=== PATIENT | male | born 1965 | race Caucasian/White ===

== ENCOUNTER 2023-02-24 10:31 | Inpatient (IN) | payer MEDICARE, OTHER ==
--- NOTE | 2023-02-24 12:34 | ED ---
Skin/Abscess/FB HPI - General Source: patient, RN notes reviewed Mode of arrival: ambulatory Limitations: no limitations <Benedict Otero - Last Filed: 02/24/23 12:33> - General Source: RN notes reviewed, old records reviewed Mode of arrival: ambulatory Limitations: no limitations - History of Present Illness MD complaint: abscess/boil, other (Cellulitis) -: days(s) Tetanus Up to Date: yes Location: LLE Severity: moderate Severity scale (1-10): 7 Quality: aching Consistency: constant Improves with: none Worsens with: none Context: recent illness Associated symptoms: chills, malaise, arthralgias Treatments Prior to Arrival: none <Mikey Gamez - Last Filed: 02/24/23 14:34> - General Chief complaint: Skin/Abscess/Foreign Body Stated complaint: left leg infection Time Seen by Provider: 02/24/23 12:33 - History of Present Illness Initial comments: 57-year-old male presents emergency Department with chief complaint of left leg possible infection. Patient states he had bilateral amputation of year ago. Patient states that over the incision site in the left he's noticed increasing redness, swelling and skin changes over the incision. Patient is concerned about infection as he has a history of MRSA. (Benedict Otero) This is a 57-year-old male DF for evaluation today. Patient Dese for evaluation of left leg pain swelling and erythema. Patient is without fever does have significant muscle disease with history of above-knee" there. She does have some drainage from the knee (Mikey Gamez) - Related Data Home Medications Medication Instructions Recorded Confirmed Albuterol Nebulized [Ventolin 2.5 mg INHALATION RT-QID PRN 02/24/23 02/24/23 Nebulized] Amiodarone [Cordarone] 100 mg PO DAILY 02/24/23 02/24/23 Apixaban [Eliquis] 5 mg PO BID 02/24/23 02/24/23 Ascorbic Acid [Vitamin C] 500 mg PO DAILY 02/24/23 02/24/23 Aspirin EC [Ecotrin Low Dose] 81 mg PO HS 02/24/23 02/24/23 Atorvastatin [Lipitor] 40 mg PO HS 02/24/23 02/24/23 Cholecalciferol [Vitamin D3 (25 12.5 mcg PO DAILY 02/24/23 02/24/23 Mcg = 1000 Iu)] Citalopram Hydrobromide 20 mg PO DAILY 02/24/23 02/24/23 [Citalopram HBr] Dulaglutide [Trulicity] 1 dose SQ DIRECTED 02/24/23 02/24/23 Ferrous Sulfate [Feosol] 325 mg PO DAILY 02/24/23 02/24/23 Folic Acid 1 mg PO DAILY 02/24/23 02/24/23 Furosemide [Lasix] 40 mg PO DAILY 02/24/23 02/24/23 Magnesium Oxide [Magnesium] 500 mg PO HS 02/24/23 02/24/23 [place]-3 Fatty Acids [[place]-3] 1,000 mg PO DAILY 02/24/23 02/24/23 Thiamine [Vitamin B-1] 100 mg PO DAILY 02/24/23 02/24/23 atenoloL [Tenormin] 50 mg PO BID 02/24/23 02/24/23 Allergies Allergy/AdvReac Type Severity Reaction Status Date / Time ceftriaxone [From Rocephin] Allergy Anaphylaxis Verified 02/24/23 14:14 fenofibrate Allergy Rash/Hives Verified 02/24/23 14:14 nickel Allergy Unknown Verified 02/24/23 14:14 sulfamethizole Allergy Unknown Verified 02/24/23 14:14 sulfamethoxazole Allergy Rash/Hives Verified 02/24/23 14:14 [From Bactrim] trimethoprim [From Bactrim] Allergy Rash/Hives Verified 02/24/23 14:14 Review of Systems ROS Other: All systems not noted in ROS Statement are negative. <Benedict Otero - Last Filed: 02/24/23 12:33> ROS Other: All systems not noted in ROS Statement are negative. <Mikey Gamez - Last Filed: 02/24/23 14:34> ROS Statement: Those systems with pertinent positive or pertinent negative responses have been documented in the HPI. Past Medical History Past Medical History: Diabetes Mellitus, Hyperlipidemia, Hypertension History of Any Multi-Drug Resistant Organisms: MRSA Past Surgical History: Back Surgery Additional Past Surgical History / Comment(s): bi-lat above the knee amputee 2021, perm Trach, back 2016 Past Psychological History: No Psychological Hx Reported Smoking Status: Never smoker Past Alcohol Use History: None Reported <Benedict Otero - Last Filed: 02/24/23 12:33> General Exam Limitations: no limitations <BrandenBenedict - Last Filed: 02/24/23 12:33> General appearance: alert, in no apparent distress, anxious Head exam: Present: atraumatic, normocephalic, normal inspection Eye exam: Present: normal appearance, PERRL, EOMI. Absent: scleral icterus, conjunctival injection, periorbital swelling ENT exam: Present: normal exam, mucous membranes moist Neck exam: Present: normal inspection. Absent: tenderness, meningismus, lymphadenopathy Respiratory exam: Present: normal lung sounds bilaterally. Absent: respiratory distress, wheezes, rales, rhonchi, stridor Cardiovascular Exam: Present: regular rate, normal rhythm, normal heart sounds. Absent: systolic murmur, diastolic murmur, rubs, gallop, clicks GI/Abdominal exam: Present: soft, normal bowel sounds. Absent: distended, tenderness, guarding, rebound, rigid Extremities exam: Present: normal inspection, full ROM, normal capillary refill. Absent: tenderness, pedal edema, joint swelling, calf tenderness Back exam: Present: normal inspection Neurological exam: Present: alert, oriented X3, CN II-XII intact Psychiatric exam: Present: normal affect, normal mood Skin exam: Present: warm, dry, intact, normal color. Absent: rash <Mikey Gamez - Last Filed: 02/24/23 14:34> - General Exam Comments Initial Comments: Visual Physical Exam Vital signs reviewed General: Well-appearing, nontoxic, no acute distress. Head: Normocephalic, atraumatic Eyes: PERRLA, EOMI ENT: Airway patent Chest: Nonlabored breathing Skin: No visual rash, normal skin tone Neuro: Alert and oriented 3 Musculoskeletal: Bilateral lower extremity amputee (Benedict Otero) Course <Mikey Gamez - Last Filed: 02/24/23 14:34> Vital Signs 02/24/23 02/24/23 10:35 13:16 Temperature 98.6 F Pulse Rate 92 86 Respiratory 18 18 Rate Blood Pressure 132/86 147/88 O2 Sat by Pulse 93 L 97 Oximetry - Reevaluation(s) Reevaluation #1: 02/24/23 14:32 Medical record is reviewed (Mikey Gamez) Reevaluation #2: 02/24/23 14:32 Patient symptoms unchanged here in the ER (Mikey Gamez) Reevaluation #3: 02/24/23 14:32 Patient informed results and questions have been answered (Mikey Gamez) Reevaluation #4: 02/24/23 13:40 Was pt. sent in by a medical professional or institution (TONIE Law, ELECTRONIC SERVICE TECHNICIAN, urgent care, hospital, or long term...) When possible be specific @ -no Did you speak to anyone other than the patient for history (EMS, parent, family, police, friend...)? What history was obtained from this source @ -no Did you review nursing and triage notes (agree or disagree)? Why? @ -agree Are old charts reviewed (outside hosp., previous admission, EMS record, old EKG, old radiological studies, urgent care reports/EKG's, long term records)? Report findings @ -yes Differential Diagnosis (chest pain, altered mental status, abdominal pain women, abdominal pain men, vaginal bleeding, weakness, fever, dyspnea, syncope, headache, dizziness, GI bleed, back pain, seizure, CVA, palpatations, mental health, musculoskeletal)? @ -prior EKG interpreted by me (3pts min.). @ -yes X-rays interpreted by me (1pt min.). @ -yes CT interpreted by me (1pt min.). @ -no U/S interpreted by me (1pt. min.). @ -no What testing was considered but not performed or refused? (CT, X-rays, U/S, lab s)? Why? @ -none What meds were considered but not given or refused? Why? @ -none Did you discuss the management of the patient with other professionals (professionals i.e. TONIE Law, ELECTRONIC SERVICE TECHNICIAN, lab, RT, psych nurse, socially responsible investment adviser, joinery patternmaker, teacher, medical corps officer, casey saw operator)? Give summary @ -no Was smoking cessation discussed for >3mins.? @ -no Was critical care preformed (if so, how long)? @ -no Were there social determinants of health that impacted care today? How? (Homelessness, low income, unemployed, alcoholism, drug addiction, transportation, low edu. Level, literacy, decrease access to med. care, usp, rehab)? @ -none Was there de-escalation of care discussed even if they declined (Discuss DNR or withdrawal of care, Hospice)? DNR status @ -no What co-morbidities impacted this encounter? (DM, HTN, Smoking, COPD, CAD, Cancer, CVA, ARF, Chemo, Hep., AIDS, mental health diagnosis, sleep apnea, morbid obesity)? @ -none Was patient admitted / discharged? Hospital course, mention meds given and route, prescriptions, significant lab abnormalities, going to OR and other pertinent info. @ - Undiagnosed new problem with uncertain prognosis? @ -no Drug Therapy requiring intensive monitoring for toxicity (Heparin, Nitro, Insulin, Cardizem)? @ -no Were any procedures done? @ -no Diagnosis/symptom? @ - Acute, or Chronic, or Acute on Chronic? @ -Acute Uncomplicated (without systemic symptoms) or Complicated (systemic symptoms)? @ -Complicated Side effects of treatment? @ -no Exacerbation, Progression, or Severe Exacerbation? @ -exacerbation Poses a threat to life or bodily function? How? (Chest pain, [place], [place], pneumonia, PE, COPD, DKA, ARF, appy, cholecystitis, CVA, Diverticulitis, Homicidal, Suicidal, threat to staff... and all critical care pts) @ -yes (Mikey Gamez) - Consultations Consultation #1: Spoke with Dr. Chino agrees to admit this patient (Mikey Gamez) Medical Decision Making <Benedict Otero - Last Filed: 02/24/23 12:33> - Lab Data Result diagrams: 02/24/23 13:55 02/24/23 12:47 - Radiology Data Radiology results: report reviewed (X-ray femur is suspicious for osteomyelitis), image reviewed <Mikey Gamez - Last Filed: 02/24/23 14:34> - Medical Decision Making I performed a quick note portion of this chart signed Benedict Otero PA-C (Benedict Otero) 57 male to the emergency room for evaluation. Patient since today for evaluation of severe left lower extremity pain. Cellulitis of the left leg. Swelling. Patient has persistent pain and swelling. Will be admitted for IV antibiotics and infectious disease evaluation (Mikey Gamez) - Lab Data Lab Results 02/24/23 02/24/23 02/24/23 Range/Units 12:47 12:47 13:55 WBC 5.0 (3.8-10.6) k/uL RBC 4.58 (4.30-5.90) m/uL Hgb 14.1 (13.0-17.5) gm/dL Hct 43.4 (39.0-53.0) % MCV 94.7 (80.0-100.0) fL MCH 30.8 (25.0-35.0) pg MCHC 32.5 (31.0-37.0) g/dL RDW 14.6 (11.5-15.5) % Plt Count 118 L (150-450) k/uL MPV 9.4 Neutrophils % 68 % Lymphocytes % 15 % Monocytes % 10 % Eosinophils % 3 % Basophils % 1 % Neutrophils # 3.4 (1.3-7.7) k/uL Lymphocytes # 0.8 L (1.0-4.8) k/uL Monocytes # 0.5 (0-1.0) k/uL Eosinophils # 0.2 (0-0.7) k/uL Basophils # 0.0 (0-0.2) k/uL Sodium 139 (137-145) mmol/L Potassium 5.8 H (3.5-5.1) mmol/L Chloride 104 (98-107) mmol/L Carbon Dioxide 27 (22-30) mmol/L Anion Gap 8 mmol/L BUN 30 H (9-20) mg/dL Creatinine 1.34 H (0.66-1.25) mg/dL Est GFR (CKD-EPI)AfAm 68 (>60 ml/min/1.73 sqM) Est GFR (CKD-EPI)NonAf 59 (>60 ml/min/1.73 sqM) Glucose 133 H (74-99) mg/dL Plasma Lactic Acid Jose Eduardo 1.4 (0.7-2.0) mmol/L Calcium 8.9 (8.4-10.2) mg/dL Total Bilirubin 0.7 (0.2-1.3) mg/dL AST 51 (17-59) U/L ALT 41 (4-49) U/L Alkaline Phosphatase 113 (38-126) U/L C-Reactive Protein 1.5 H (<1.0) mg/dL Total Protein 6.9 (6.3-8.2) g/dL Albumin 3.8 (3.5-5.0) g/dL Disposition <Benedict Otero - Last Filed: 02/24/23 12:33> Is patient prescribed a controlled substance at d/c from ED?: No Time of Disposition: 14:30 <Mikey Gamez - Last Filed: 02/24/23 14:34> Clinical Impression: Left leg cellulitis, Leg osteomyelitis, left Disposition: ADMITTED IP TO THIS HOSP Condition: Serious Referrals: Jonathon Dominguez MD [Primary Care Provider] - 1-2 days
[2023-02-24 13:20] LABS: ALT 41 U/L (4-49); African American GFR (CKD) 68 (>60 ml/min/1.73 sqM); Anion Gap 8 mmol/L; Blood Urea Nitrogen 30 mg/dL (9-20); C Reactive Protein 1.5 mg/dL (<1.0); Calcium 8.9 mg/dL (8.4-10.2); Carbon Dioxide 27 mmol/L (22-30); Chloride 104 mmol/L (98-107); Glucose 133 mg/dL (74-99); Non-African American GFR(CKD) 59 (>60 ml/min/1.73 sqM); Sodium 139 mmol/L (137-145); Total Bilirubin 0.7 mg/dL (0.2-1.3)
[2023-02-24 13:29] LABS: AST 51 U/L (17-59); Albumin 3.8 g/dL (3.5-5.0); Alkaline Phosphatase 113 U/L (38-126); Potassium 5.8 mmol/L (3.5-5.1); Total Protein 6.9 g/dL (6.3-8.2)
--- NOTE | 2023-02-24 13:50 | XR ---
EXAMINATION TYPE: XR Femur LT 1 View DATE OF EXAM: 02/24/2023 COMPARISON: NONE HISTORY: infection TECHNIQUE: 2 views of the left femur are submitted FINDINGS: There is evidence of [id number] amputation. There is soft tissue swelling. As the amput ation stump. There is mild lucency noted of the distal left femur with heterotopic ossification seen. Underlying osteomyelitis is difficult to exclude. IMPRESSION: 1. Lucency about the distal femoral amputation. Underlying osteomyelitis is not excluded. There is so ft tissue swelling compatible with cellulitis.
[2023-02-24 14:05] LABS: Basophils % (A) 1 %; Eosinophils # (A) 0.2 k/uL (0-0.7); Eosinophils % (A) 3 %; HCT 43.4 % (39.0-53.0); HGB 14.1 gm/dL (13.0-17.5); Lymphocytes # (A) 0.8 k/uL (1.0-4.8); Lymphocytes % (A) 15 %; MCH 30.8 pg (25.0-35.0); MCHC 32.5 g/dL (31.0-37.0); MCV 94.7 fL (80.0-100.0); Mean Platelet Volume 9.4; Monocytes # (A) 0.5 k/uL (0-1.0); Monocytes % (A) 10 %; Neutrophils # (A) 3.4 k/uL (1.3-7.7); Neutrophils % (A) 68 %; Platelet Count 118 k/uL (150-450); RBC 4.58 m/uL (4.30-5.90); RDW 14.6 % (11.5-15.5)
[2023-02-24] MEDS ORDERED: MORPHINE SULFATE 4 MG/ML SYRINGE IV PRN (14:26)
[2023-02-24] MEDS ORDERED: NALOXONE 0.4 MG/ML 1 ML VIAL IV PRN (14:26)
[2023-02-24] MEDS ORDERED: VANCOMYCIN IV PER PHARMACY 1 EACH MISC MISCELLANE PRN (14:26)
[2023-02-24] MEDS ORDERED: AMPICILLIN-SULBACTAM 3 GM in SODIUM CHLORIDE 0.9% 100 ML IVPB STA (14:26)
[2023-02-24] MEDS ORDERED: ONDANSETRON 4 MG/2 ML VIAL IVP PRN (14:26)
[2023-02-24] MEDS ORDERED: VANCOMYCIN 2,250 MG in SODIUM CHLORIDE 0.9% 500 ML 500 ML IVPB ONE (15:00)
[2023-02-24] MEDS: SODIUM CHLORIDE 0.9% 1,000 ML IV SCH (15:45)
[2023-02-24] MEDS ORDERED: ALBUTEROL NEBULIZED 2.5 MG/3 ML INHALATION PRN (16:23)
[2023-02-24] MEDS ORDERED: NON FORMULARY DRUG (Dulaglutide [Trulicity] 0.75 MG/0.5 ML Each) SQ SCH (16:30)
[2023-02-24] MEDS ORDERED: Acetaminophen-Codeine 300-30mg TAB PO PRN (19:22)
[2023-02-24] MEDS ORDERED: MELATONIN 3 MG TABLET PO PRN (19:22)
[2023-02-24] MEDS ORDERED: ACETAMINOPHEN TAB 325 MG TAB PO PRN (19:22)
[2023-02-24] MEDS ORDERED: CALCIUM CARBONATE 500 MG CHEWABLE PO PRN (19:22)
[2023-02-24] MEDS ORDERED: LACTULOSE 20 GM/30 ML CUP PO PRN (19:22)
[2023-02-24] MEDS ORDERED: ALPRAZolam 0.25 MG TAB PO PRN (19:22)
[2023-02-24] MEDS ORDERED: DEXTROSE 50% SYRINGE 50 ML IVP PRN ×2 (19:24)
[2023-02-24] MEDS: ATORVASTATIN 40 MG TAB PO SCH (21:11)
--- NOTE | 2023-02-24 21:11 | XR ---
EXAMINATION TYPE: XR chest 1V portable DATE OF EXAM: 02/24/2023 HISTORY: Shortness of breath. COMPARISON: None. TECHNIQUE: Single view of the chest is submitted. FINDINGS: Demonstrated are scattered senescent parenchymal change. Tracheostomy tube is in place. There is no evidence for focal infiltrate. The heart is stable. Pulmonary venous congestion without overt failure. Hilar and mediastinal structures are within normal limits. Degenerative changes are seen of the dorsal spine. IMPRESSION: 1. Pulmonary venous congestion without overt failure.
[2023-02-24] MEDS: MAGNESIUM OXIDE 400 MG TAB PO SCH (21:12)
[2023-02-24] MEDS: ASPIRIN 81 MG PO SCH (21:12)
[2023-02-24] MEDS: atenoloL 50 MG TAB PO SCH (21:12)
[2023-02-24] MEDS: APIXABAN 5 MG TAB PO SCH (21:12)
[2023-02-25] MEDS ORDERED: AMPICILLIN-SULBACTAM 3 GM in SODIUM CHLORIDE 0.9% 100 ML IVPB SCH ×2
[2023-02-25] MEDS: VANCOMYCIN 2,250 MG in SODIUM CHLORIDE 0.9% 500 ML 500 ML IVPB SCH ×2 (03:16→15:12)
[2023-02-25 06:02] LABS: Glucose,Whole Blood 125 mg/dL (70-110)
[2023-02-25] MEDS: INSULIN ASPART (NovoLOG) 100 UNIT/ML VIAL SQ SCH ×3 (06:28→16:41)
[2023-02-25] MEDS: CHOLECALCIFEROL 25 MCG (1000 IU) TABLET PO SCH (08:28)
[2023-02-25] MEDS: THIAMINE 100 MG TAB PO SCH (08:28)
[2023-02-25] MEDS: FERROUS SULFATE 325 MG TAB PO SCH (08:28)
[2023-02-25] MEDS: ASCORBIC ACID 500 MG TAB PO SCH (08:28)
[2023-02-25] MEDS: APIXABAN 5 MG TAB PO SCH ×2 (08:28→19:58)
[2023-02-25] MEDS: FUROSEMIDE 40 MG TAB PO SCH (08:28)
[2023-02-25] MEDS: CITALOPRAM HYDROBROMIDE 20 MG TAB PO SCH (08:37)
[2023-02-25] MEDS: FOLIC ACID 1 MG TAB PO SCH (08:37)
[2023-02-25] MEDS: atenoloL 50 MG TAB PO SCH ×2 (08:58→19:58)
[2023-02-25] MEDS: AMIODARONE 100 MG TAB PO SCH (08:58)
[2023-02-25 11:38] LABS: Glucose,Whole Blood 172 mg/dL (70-110)
--- NOTE | 2023-02-25 12:24 | P.CONS ---
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 and the patient is status post bilateral [id number]-[id number] amputation in 2021 patient also have a permanent trach, patient presenting to the hospital concerning for blister to the left AKA stump that he noticed a blister to the left AKA stump and noticed to have some clear drainage from that site the morning of presentation the hospital with concern for possible infection patient did presented to the hospital patient denies having any fever and chills and no fevers have been recorded subsequently, patient denies any worsening pain to the left AKA stump did have minimal swelling however no sniffing and redness or warmth, patient of presentation to the hospital was afebrile, patient did have normal 15.0. His 1.3 for liver enzymes and normal CRP is 1.5 patient was started on vancomycin and Unasyn and infectious disease was consulted for further management of antibiotic therapy Review of Systems Positive point and negatives has been mentioned in the HPI, complete review of systems was performed and all other systems are negative Past Medical History Past Medical History: Diabetes Mellitus, Hyperlipidemia, Hypertension History of Any Multi-Drug Resistant Organisms: MRSA Past Surgical History: Back Surgery Additional Past Surgical History / Comment(s): bi-lat above the knee amputee 2021, perm Trach, back 2016 Past Psychological History: No Psychological Hx Reported Smoking Status: Never smoker Past Alcohol Use History: None Reported Medications and Allergies Home Medications Medication Instructions Recorded Confirmed Type Albuterol Nebulized [Ventolin 2.5 mg INHALATION RT-QID PRN 02/24/23 02/24/23 History Nebulized] Amiodarone [Cordarone] 100 mg PO DAILY 02/24/23 02/24/23 History Apixaban [Eliquis] 5 mg PO BID 02/24/23 02/24/23 History Ascorbic Acid [Vitamin C] 500 mg PO DAILY 02/24/23 02/24/23 History Aspirin EC [Ecotrin Low Dose] 81 mg PO HS 02/24/23 02/24/23 History Atorvastatin [Lipitor] 40 mg PO HS 02/24/23 02/24/23 History Cholecalciferol [Vitamin D3 (25 12.5 mcg PO DAILY 02/24/23 02/24/23 History Mcg = 1000 Iu)] Citalopram Hydrobromide 20 mg PO DAILY 02/24/23 02/24/23 History [Citalopram HBr] Dulaglutide [Trulicity] 1 dose SQ DIRECTED 02/24/23 02/24/23 History Ferrous Sulfate [Iron (65 MG 325 mg PO DAILY 02/24/23 02/24/23 History Elemental)] Folic Acid 1 mg PO DAILY 02/24/23 02/24/23 History Furosemide [Lasix] 40 mg PO DAILY 02/24/23 02/24/23 History Magnesium Oxide [Magnesium] 500 mg PO HS 02/24/23 02/24/23 History [place]-3 Fatty Acids [[place]-3] 1,000 mg PO DAILY 02/24/23 02/24/23 History Thiamine [Vitamin B-1] 100 mg PO DAILY 02/24/23 02/24/23 History atenoloL [Tenormin] 50 mg PO BID 02/24/23 02/24/23 History Doxycycline Hyclate 100 mg PO BID 7 Days #14 tab 02/26/23 Rx Allergies Allergy/AdvReac Type Severity Reaction Status Date / Time ceftriaxone [From Rocephin] Allergy Anaphylaxis Verified 02/24/23 14:14 fenofibrate Allergy Rash/Hives Verified 02/24/23 14:14 nickel Allergy Unknown Verified 02/24/23 14:14 sulfamethizole Allergy Unknown Verified 02/24/23 14:14 sulfamethoxazole Allergy Rash/Hives Verified 02/24/23 14:14 [From Bactrim] trimethoprim [From Bactrim] Allergy Rash/Hives Verified 02/24/23 14:14 Physical Exam Vitals: Vital Signs Temp Pulse Resp BP Pulse Ox 02/24/23 13:16 86 18 147/88 97 02/24/23 10:35 98.6 F 92 18 132/86 93 L Intake and Output 02/24/23 02/24/23 02/24/23 06:59 14:59 22:59 Other: Weight 170.097 kg GENERAL DESCRIPTION: Middle-aged male up in the bed, no distress. No tachypnea or accessory muscle of respiration use. HEENT: Shows Pallor , no scleral icterus. Oral mucous membrane is dry. No pharyngeal erythema or thrush NECK: Trachea central, no thyromegaly. LUNGS: Unlabored breathing. Clear to auscultation anteriorly. No wheeze or crackle. HEART: S1, S2, regular rate and rhythm. No loud murmur ABDOMEN: Soft, no tenderness , guarding or rigidity, no organomegaly EXTREMITIES: Left AKA stump did have some swelling and mild redness but no significant warmth currently do not have any open wound or any drainage SKIN: No rash, no masses palpable. NEUROLOGICAL: The patient is awake, alert, oriented x3, mood and affect normal. Results CBC & Chem 7: 02/25/23 07:35 02/25/23 07:35 Labs: Abnormal Lab Results - Last 24 Hours (Table) 02/24/23 02/24/23 Range/Units 12:47 13:55 Plt Count 118 L (150-450) k/uL Lymphocytes # 0.8 L (1.0-4.8) k/uL Potassium 5.8 H (3.5-5.1) mmol/L BUN 30 H (9-20) mg/dL Creatinine 1.34 H (0.66-1.25) mg/dL Glucose 133 H (74-99) mg/dL C-Reactive Protein 1.5 H (<1.0) mg/dL Assessment and Plan (1) Left leg cellulitis Current Visit: Yes Status: Acute Code(s): L03.116 - CELLULITIS OF LEFT LOWER LIMB SNOMED Code(s): 872647110 Plan: 1patient did have a complicated history of bilateral knee infection failing medical therapy status post bilateral [id number] amputation, and also have a history of AKA incision infection with MRSA, the patient now presenting to the hospital with a blister to the left AKA site and concern for some drainage however I was not able to appreciate any drainage or any fluctuation patient not running any fever and white count is normal. 2keeping in mind his history of MRSA infection we'll keep patient on vancomycin however discontinue Unasyn, 3nursing staff has been advised if the area started to drain to get culture We will follow on clinical condition and cultures to further adjust medication if needed Thank you for this consultation will follow this patient with you Dictation was produced using [employer] software. please excuse any grammatical, word or spelling errors. Time with Patient: Greater than 30
[2023-02-25 12:25] LABS: Basophils # (A) 0.05 X 10*3/uL (0.00-0.10); Eosinophils # (A) 0.16 X 10*3/uL (0.04-0.35); Eosinophils % (A) 3.3 %; HCT 42.8 % (39.6-50.0); HGB 13.5 d/dL (13.0-17.0); Lymphocytes # (A) 0.72 X 10*3/uL (0.90-5.00); Lymphocytes % (A) 14.9 %; MCH 30.5 pg (27.0-32.0); MCHC 31.5 d/dL (32.0-37.0); MCV 96.8 FL (80.0-97.0); Mean Platelet Volume 12.1 FL (9.5-12.2); Monocytes # (A) 0.58 X 10*3/uL (0.20-1.00); NRBC Per 100 WBC 0 X 10*3/uL (0.00-0.01); Neutrophils # (A) 3.31 X 10*3/uL (1.80-7.70); Neutrophils % (A) 68.4 %; Platelet Count 102 X 10*3/uL (140-440); RBC 4.42 X 10*6/uL (4.40-5.60); RDW 14.5 % (11.5-14.5); WBC 4.84 X 10*3/uL (4.50-10.00)
--- NOTE | 2023-02-25 12:27 | P.PN ---
Subjective Progress Note Date: 02/25/23 Principal diagnosis: Left AKA stump blister and question of cellulitis Patient is a 57 year old male with a complicated history of bilateral knee infection failing medical therapy status post bilateral jtodb-gqy-ggst amputation and did have a history of incisional wound infection with MRSA now presented to the hospital with a blister to the left AKA stump On today's evaluation that is 02/25/2023, the patient denies having any fever or chills, the patient is breathing baseline denies any chest pain or sputum production no abdominal pain patient and the blister to the left AKA stump has not drained any further and no culture has been obtained no abdominal pain and no diarrhea Patient did have a normal white count of 5.0 creatinine of 1.34 as of yesterday no blood draw today Objective - Vital Signs Vital signs: Vital Signs Temp 97.6 F 02/25/23 01:08 Pulse 87 02/25/23 08:00 Resp 16 02/25/23 08:00 BP 118/71 02/25/23 08:00 Pulse Ox 93 L 02/25/23 08:00 FiO2 Intake & Output 02/24/23 02/25/23 02/25/23 18:59 06:59 18:59 Weight 170.097 kg 170.097 kg Other: Voiding Method Urinal Urinal # Voids 750 - Exam GENERAL DESCRIPTION: A middle-age male lying in bed in no distress RESPIRATORY SYSTEM: Unlabored breathing , decreased breath sounds at bases HEART: S1 S2 regular rate and rhythm , ABDOMEN: Soft , no tenderness EXTREMITIES: Left AKA stump with a blister no drainage no significant warmth or redness - Labs CBC & Chem 7: 02/25/23 07:35 02/24/23 12:47 Labs: Abnormal Lab Results - Last 24 Hours (Table) 02/24/23 02/24/23 02/25/23 Range/Units 12:47 13:55 06:01 Plt Count 118 L (150-450) k/uL Lymphocytes # 0.8 L (1.0-4.8) k/uL Potassium 5.8 H (3.5-5.1) mmol/L BUN 30 H (9-20) mg/dL Creatinine 1.34 H (0.66-1.25) mg/dL Glucose 133 H (74-99) mg/dL POC Glucose (mg/dL) 125 H (70-110) mg/dL C-Reactive Protein 1.5 H (<1.0) mg/dL Assessment and Plan (1) Left leg cellulitis Current Visit: Yes Status: Acute Code(s): L03.116 - CELLULITIS OF LEFT LOWER LIMB SNOMED Code(s): 719908092 Plan: 1patient did have a complicated history of bilateral knee infection failing medical therapy status post bilateral [id number] amputation, and also have a history of AKA incision infection with MRSA, the patient now presenting to the hospital with a blister to the left AKA site and concern for some drainage ho wever I was not able to appreciate any drainage or any fluctuation patient not running any fever and white count is normal. 2keeping in mind his history of MRSA infection we'll keep patient on vancomycin for another 24 hour and if no further drainage we will transition him to short course of oral antibiotics were discussed with the admitting team 3nursing staff has been advised if the area started to drain to get culture Dictation was produced using [employer] dictation software. please excuse any grammatical, word or spelling errors. Time with Patient: Less than 30
[2023-02-25 13:10] LABS: ALT 41 U/L (10-49); AST 33 U/L (14-35); Albumin 3.8 d/dL (3.8-4.9); Albumin/Globulin Ratio 1.65 Ratio (1.60-3.17); Alkaline Phosphatase 128 U/L (41-126); BUN/Creat Ratio 16.53 Ratio (12.00-20.00); Blood Urea Nitrogen 24.8 mg/dL (9.0-27.0); Calcium 8.9 mg/dL (8.7-10.3); Carbon Dioxide 25.7 mmol/L (21.6-31.8); Chloride 103 mmol/L (96-109); Globulin 2.3 d/dL (1.6-3.3); Glucose 129 mg/dL (70-110); Magnesium 1.8 mg/dL (1.5-2.4); Potassium 4.6 mmol/L (3.5-5.5); Sodium 140 mmol/L (135-145); Total Bilirubin 0.3 mg/dL (0.3-1.2); Total Protein 6.1 d/dL (6.2-8.2)
[2023-02-25] MEDS: SODIUM CHLORIDE 0.9% 1,000 ML IV SCH (15:12)
--- NOTE | 2023-02-25 16:01 | P.HPIM ---
History of Present Illness H&P Date: 02/24/23 Chief Complaint: Left leg stump infection This is a pleasant 57-year-old patient, follows with Dr. Dominguez. I evaluated the patient in the ER along with his . Patient does use a motorized wheelchair Patient's chronic stable medical conditions include diabetes mellitus, hypertension, paroxysmal atrial fibrillation hyperlipidemia. Patient's had bilateral above-knee amputation at [facility] , for bilateral infected knee joint prosthesis with MRSA. Patient has several course of infections. Has been admitted to different hospitals including [facility]. He does follow locally in town with [facility] Patient now presents with spot in the left stump that is losing with some blisters. There is some local redness. Denied any obvious tenderness no fever no chills. Patient also has a tracheostomy from February 2022. Oral intake is fair. Bowel movements are regular. Review of systems: GEN.: None EYES: None HEENT: None NECK: Tracheostomy RESPIRATORY: None CARDIOVASCULAR: None GASTROINTESTINAL: None GENITOURINARY: None MUSCULOSKELETAL: As above LYMPHATICS: None HEMATOLOGICAL: None PSYCHIATRY: None NEUROLOGICAL: None Past medical history to include: Diabetes mellitus, hyperlipidemia, hypertension, multiple MRSA infection, b ilateral above-knee amputation 2021, permanent tracheostomy Social history: . Does use a motorized wheelchair to get about. No smoking or alcohol. Physical examination: VITAL SIGNS: 98.6, 92, 18, 132/86, 93% room air GENERAL:. BMI 124.6, sitting up on a motorized wheelchair, not in distress. EYES: Pupils equal. Conjunctiva normal. HEENT: External appearance of nose and ears normal, oral cavity grossly normal. NECK: JVD unable to assess; tracheostomy tube. HEART: First and second heart sounds are normal; no edema. LUNGS: Respiratory rate increased; decreased breath sound. ABDOMEN: Soft, nontender, liver spleen not palpable, no masses palpable. PSYCH: Alert and oriented x3; mood and affect normal. MUSCULOSKELETAL:No Clubbing/cyanosis;muscles-grossly intact. Bilateral above- knee amputation DERMATOLOGICAL: On the left leg stump on the medial aspect area of redness with some blister. Minimally tender NEUROLOGICAL: Cranial nerves grossly intact; no facial asymmetry, power and sensation grossly intact. LYMPHATICS: No lymph nodes palpable in the axilla and neck INVESTIGATIONS, reviewed in the clinical context: Chest x-ray film personally reviewed by me-portable: Underpenetrated. Some atelectasis. EKG tracing personally reviewed by me-atrial flutter. Rate controlled White count 5 hemoglobin 14.1 platelets 118 sodium 139 potassium 5.8 BUN 30 creatinine 1.34 CRP 1.5 X-ray left femur: Lucency about distal femoral amputation. Osteomyelitis cannot be excluded. Soft tissue swelling compatible with cellulitis. Assessment and plan: -Acute infection of the left leg above-knee amputation stump in a patient's had multiple previous MRSA infections. Currently the patient does not have any fever or white count. But given that patient's had multiple infections a past this cannot be relied upon. X-ray of the femur is not able to rule out ostia mellitus we will order a MRI of the left stump. ID has been consulted. 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 -Morbid obesity BMI 124.6 Weight loss measures -Chronic tracheostomy placed in February 2022 -Diabetes mellitus type 2, on Trulicity Follow Accu-Cheks with sliding scale -Persistent atrial flutter, rate controlled. Tenormin. Eliquis. Telemetry monitoring -Depression not otherwise specified Celexa 20 mg a day -Chronic medical debility, uses a motorized wheelchair to get about -Full code Care was discussed with the patient at the bedside. Questions answered. Past Medical History Past Medical History: Diabetes Mellitus, Hyperlipidemia, Hypertension History of Any Multi-Drug Resistant Organisms: MRSA Past Surgical History: Back Surgery Additional Past Surgical History / Comment(s): bi-lat above the knee amputee 2021, perm Trach, back 2016 Past Psychological History: No Psychological Hx Reported Smoking Status: Never smoker Past Alcohol Use History: None Reported Medications and Allergies Home Medications Medication Instructions Recorded Confirmed Type Albuterol Nebulized [Ventolin 2.5 mg INHALATION RT-QID PRN 02/24/23 02/24/23 History Nebulized] Amiodarone [Cordarone] 100 mg PO DAILY 02/24/23 02/24/23 History Apixaban [Eliquis] 5 mg PO BID 02/24/23 02/24/23 History Ascorbic Acid [Vitamin C] 500 mg PO DAILY 02/24/23 02/24/23 History Aspirin EC [Ecotrin Low Dose] 81 mg PO HS 02/24/23 02/24/23 History Atorvastatin [Lipitor] 40 mg PO HS 02/24/23 02/24/23 History Cholecalciferol [Vitamin D3 (25 12.5 mcg PO DAILY 02/24/23 02/24/23 History Mcg = 1000 Iu)] Citalopram Hydrobromide 20 mg PO DAILY 02/24/23 02/24/23 History [Citalopram HBr] Dulaglutide [Trulicity] 1 dose SQ DIRECTED 02/24/23 02/24/23 History Ferrous Sulfate [Feosol] 325 mg PO DAILY 02/24/23 02/24/23 History Folic Acid 1 mg PO DAILY 02/24/23 02/24/23 History Furosemide [Lasix] 40 mg PO DAILY 02/24/23 02/24/23 History Magnesium Oxide [Magnesium] 500 mg PO HS 02/24/23 02/24/23 History [place]-3 Fatty Acids [[place]-3] 1,000 mg PO DAILY 02/24/23 02/24/23 History Thiamine [Vitamin B-1] 100 mg PO DAILY 02/24/23 02/24/23 History atenoloL [Tenormin] 50 mg PO BID 02/24/23 02/24/23 History Allergies Allergy/AdvReac Type Severity Reaction Status Date / Time ceftriaxone [From Rocephin] Allergy Anaphylaxis Verified 02/24/23 14:14 fenofibrate Allergy Rash/Hives Verified 02/24/23 14:14 nickel Allergy Unknown Verified 02/24/23 14:14 sulfamethizole Allergy Unknown Verified 02/24/23 14:14 sulfamethoxazole Allergy Rash/Hives Verified 02/24/23 14:14 [From Bactrim] trimethoprim [From Bactrim] Allergy Rash/Hives Verified 02/24/23 14:14 Physical Exam Vitals: Vital Signs Temp Pulse Resp BP Pulse Ox 02/24/23 13:16 86 18 147/88 97 02/24/23 10:35 98.6 F 92 18 132/86 93 L Intake and Output 02/24/23 02/24/23 02/24/23 06:59 14:59 22:59 Other: Weight 170.097 kg Results CBC & Chem 7: 02/25/23 07:35 02/25/23 07:35 Labs: Abnormal Lab Results - Last 24 Hours (Table) 02/24/23 02/24/23 Range/Units 12:47 13:55 Plt Count 118 L (150-450) k/uL Lymphocytes # 0.8 L (1.0-4.8) k/uL Potassium 5.8 H (3.5-5.1) mmol/L BUN 30 H (9-20) mg/dL Creatinine 1.34 H (0.66-1.25) mg/dL Glucose 133 H (74-99) mg/dL C-Reactive Protein 1.5 H (<1.0) mg/dL
--- NOTE | 2023-02-25 16:04 | P.PN ---
Progress Note - Text Progress Note Date: 02/25/23 Chief Complaint: Left leg stump infection This is a pleasant 57-year-old patient, follows with Dr. Dominguez. I evaluated the patient in the ER along with his . Patient does use a motorized wheelchair Patient's chronic stable medical conditions include diabetes mellitus, hypertension, paroxysmal atrial fibrillation hyperlipidemia. Patient's had bilateral above-knee amputation at [facility] , for bilateral infected knee joint prosthesis with MRSA. Patient has several course of infections. Has been admitted to different hospitals including [facility]. He does follow locally in town with Dr. Mendoza from [facility]. Patient now presents with spot in the left stump that is losing with some blisters. There is some local redness. Denied any obvious tenderness no fever no chills. Patient also has a tracheostomy from February 2022. Oral intake is fair. Bowel movements are regular. February 25: Patient feeling well. No fever no chills. Discussed with ID Dr. Mendoza. Does not feel that is any deep infection. We both agreed to the same. Hence MRI is being canceled. Continue his IV vancomycin for today. No fever, white count normal. Active Medications Acetaminophen (Acetaminophen Tab 325 Mg Tab) 650 mg PO Q6HR PRN PRN Reason: Mild Pain or Fever > 100.5 Acetaminophen/Codeine Phosphate (Acetaminophen-Codeine 300-30mg Tab) 1 each PO Q4HR PRN PRN Reason: Moderate Pain (Scale 4 to 6) Albuterol Sulfate (Albuterol Nebulized 2.5 Mg/3 Ml) 2.5 mg INHALATION RT-QID PRN PRN Reason: Shortness Of Breath Alprazolam (Alprazolam 0.25 Mg Tab) 0.25 mg PO Q6HR PRN PRN Reason: Anxiety Amiodarone HCl (Amiodarone 100 Mg Tab) 100 mg PO DAILY [facility] Last Admin: 02/25/23 08:58 Dose: 100 mg Apixaban (Apixaban 5 Mg Tab) 5 mg PO BID [facility]; Protocol Last Admin: 02/25/23 08:28 Dose: 5 mg Ascorbic Acid (Ascorbic Acid 500 Mg Tab) 500 mg PO DAILY [facility] Last Admin: 02/25/23 08:28 Dose: 500 mg Aspirin (Aspirin 81 Mg) 81 mg PO [facility] Last Admin: 02/24/23 21:12 Dose: 81 mg Atenolol (Atenolol 50 Mg Tab) 50 mg PO BID [facility] Last Admin: 02/25/23 08:58 Dose: 50 mg Atorvastatin Calcium (Atorvastatin 40 Mg Tab) 40 mg PO [facility] Last Admin: 02/24/23 21:11 Dose: 40 mg Calcium Carbonate/Glycine (Calcium Carbonate 500 Mg Chewable) 1,000 mg PO Q4HR PRN PRN Reason: Dyspepsia Last Admin: 02/25/23 08:28 Dose: 1,000 mg Cholecalciferol (Cholecalciferol 25 Mcg (1000 Iu) Tablet) 12.5 mcg PO DAILY [facility] Last Admin: 02/25/23 08:28 Dose: 12.5 mcg Citalopram Hydrobromide (Citalopram Hydrobromide 20 Mg Tab) 20 mg PO DAILY [facility] Last Admin: 02/25/23 08:37 Dose: 20 mg Dextrose/Water (Dextrose 50% Syringe 50 Ml) 25 ml IVP PER PROTOCOL PRN; Protocol PRN Reason: Hypoglycemia Dextrose/Water (Dextrose 50% Syringe 50 Ml) 50 ml IVP PER PROTOCOL PRN; Protocol PRN Reason: Hypoglycemia Ferrous Sulfate (Ferrous Sulfate 325 Mg Tab) 325 mg PO DAILY [facility] Last Admin: 02/25/23 08:28 Dose: 325 mg Folic Acid (Folic Acid 1 Mg Tab) 1 mg PO DAILY [facility] Last Admin: 02/25/23 08:37 Dose: 1 mg Furosemide (Furosemide 40 Mg Tab) 40 mg PO DAILY [facility] Last Admin: 02/25/23 08:28 Dose: 40 mg Sodium Chloride (Saline 0.9%) 1,000 mls @ 20 mls/hr IV .Q24H [facility] Last Admin: 02/25/23 15:12 Dose: 20 mls/hr Vancomycin HCl 2,250 mg/ (Sodium Chloride) 500 mls @ 167 mls/hr IVPB Q12H [facility] Last Admin: 02/25/23 15:12 Dose: 167 mls/hr Insulin Aspart (Insulin Aspart (Novolog) 100 Unit/Ml Vial) 0 unit SQ AC-TID [facility]; Protocol Last Admin: 02/25/23 11:55 Dose: 2 unit Lactulose (Lactulose 20 Gm/30 Ml Cup) 20 gm PO DAILY PRN PRN Reason: Constipation Magnesium Oxide (Magnesium Oxide 400 Mg Tab) 400 mg PO [facility] Last Admin: 02/24/23 21:12 Dose: 400 mg Melatonin (Melatonin 3 Mg Tablet) 3 mg PO HS PRN PRN Reason: Insomnia Naloxone HCl (Naloxone 0.4 Mg/Ml 1 Ml Vial) 0.2 mg IV Q2M PRN PRN Reason: Opioid Reversal Ondansetron HCl (Ondansetron 4 Mg/2 Ml Vial) 4 mg IVP Q8HR PRN PRN Reason: Nausea And Vomiting Thiamine HCl (Thiamine 100 Mg Tab) 100 mg PO DAILY [facility] Last Admin: 02/25/23 08:28 Dose: 100 mg Past medical history to include: Diabetes mellitus, hyperlipidemia, hypertension, multiple MRSA infection, bilateral above-knee amputation 2021, permanent tracheostomy Social history: . Does use a motorized wheelchair to get about. No smoking or alcohol. Physical examination: VITAL SIGNS: 97.6, 87, 16, 118/71, 93% room air GENERAL:. Eating up in bed, comfortable EYES: Pupils equal. Conjunctiva normal. HEENT: External appearance of nose and ears normal, oral cavity grossly normal. NECK: JVD unable to assess; tracheostomy tube. HEART: First and second heart sounds are normal; no edema. LUNGS: Respiratory rate increased; decreased breath sound. ABDOMEN: Soft, nontender, liver spleen not palpable, no masses palpable. PSYCH: Alert and oriented x3; mood and affect normal. MUSCULOSKELETAL:No Clubbing/cyanosis;muscles-grossly intact. Bilateral above- knee amputation DERMATOLOGICAL: On the left leg stump on the medial aspect area of redness with some blister. Minimally tender INVESTIGATIONS, reviewed in the clinical context: February 25: White count 4.8 to globin 13.5 platelets and 0 to potassium 4.6 creatinine 1.5 Chest x-ray film personally reviewed by me-portable: Underpenetrated. Some atelectasis. EKG tracing personally reviewed by me-atrial flutter. Rate controlled White count 5 hemoglobin 14.1 platelets 118 sodium 139 potassium 5.8 BUN 30 creatinine 1.34 CRP 1.5 X-ray left femur: Lucency about distal femoral amputation. Osteomyelitis cannot be excluded. Soft tissue swelling compatible with cellulitis. Assessment and plan: -Acute infection of the left leg above-knee amputation stump in a patient's had multiple previous MRSA infections. Currently the patient does not have any fever or white count. IV vancomycin. Discussed with ID. Not felt to be deep infection. Cancel MRI. Continue IV vancomycin. 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 -Morbid obesity BMI 124.6 Weight loss measures -Chronic tracheostomy placed in February 2022 -Diabetes mellitus type 2, on Trulicity Follow Accu-Cheks with sliding scale -Persistent atrial flutter, rate controlled. Tenormin. Eliquis. Telemetry monitoring -Depression not otherwise specified Celexa 20 mg a day -Chronic medical debility, uses a motorized wheelchair to get about -Full code Cancel MRI. Continue IV vancomycin.
[2023-02-25 16:36] LABS: Glucose,Whole Blood 91 mg/dL (70-110)
[2023-02-25] MEDS: ATORVASTATIN 40 MG TAB PO SCH (19:58)
[2023-02-25] MEDS: ASPIRIN 81 MG PO SCH (19:58)
[2023-02-25] MEDS: MAGNESIUM OXIDE 400 MG TAB PO SCH (19:59)
[2023-02-25 20:07] LABS: Glucose,Whole Blood 168 mg/dL (70-110)
[2023-02-26] MEDS: VANCOMYCIN 2,250 MG in SODIUM CHLORIDE 0.9% 500 ML 500 ML IVPB SCH (03:52)
[2023-02-26] MEDS: INSULIN ASPART (NovoLOG) 100 UNIT/ML VIAL SQ SCH ×2 (05:55→11:34)
[2023-02-26 05:56] LABS: Glucose,Whole Blood 123 mg/dL (70-110)
[2023-02-26] MEDS: FUROSEMIDE 40 MG TAB PO SCH (07:29)
[2023-02-26] MEDS: FERROUS SULFATE 325 MG TAB PO SCH (07:29)
[2023-02-26] MEDS: FOLIC ACID 1 MG TAB PO SCH (07:29)
[2023-02-26] MEDS: atenoloL 50 MG TAB PO SCH (07:29)
[2023-02-26] MEDS: THIAMINE 100 MG TAB PO SCH (07:30)
[2023-02-26] MEDS: CITALOPRAM HYDROBROMIDE 20 MG TAB PO SCH (07:30)
[2023-02-26] MEDS: ASCORBIC ACID 500 MG TAB PO SCH (07:30)
[2023-02-26] MEDS: APIXABAN 5 MG TAB PO SCH (07:30)
[2023-02-26] MEDS: CHOLECALCIFEROL 25 MCG (1000 IU) TABLET PO SCH (07:33)
[2023-02-26] MEDS: AMIODARONE 100 MG TAB PO SCH (07:33)
[2023-02-26 09:00] VITALS: BP 144/88; PULSE 80; RESP 16; TEMP 98
[2023-02-26 11:23] LABS: Glucose,Whole Blood 108 mg/dL (70-110)
--- NOTE | 2023-02-26 13:07 | P.PN ---
Subjective Progress Note Date: 02/26/23 Principal diagnosis: Left AKA stump blister and question of cellulitis Patient is a 57 year old male with a complicated history of bilateral knee infection failing medical therapy status post bilateral pathh-[id number]-niul amputation and did have a history of incisional wound infection with MRSA now presented to the hospital with a blister to the left AKA stump On today's evaluation that is 02/26/2023, the patient remains to be afebrile, the patient is breathing comfortably on a trach collar, the patient denies any chest pain or sputum production no abdominal pain patient and the blister to the left AKA stump has not drained any further and no culture has been obtained no abdominal pain and no diarrhea Patient did have a normal white count of 4.84, the patient creatinine is 1.5 as of yesterday no blood draw today, Objective - Vital Signs Vital signs: Vital Signs Temp 98 F 02/26/23 08:00 Pulse 80 02/26/23 08:00 Resp 16 02/26/23 08:00 BP 144/88 02/26/23 08:00 Pulse Ox 93 L 02/26/23 08:00 FiO2 Intake & Output 02/25/23 02/26/23 02/26/23 18:59 06:59 18:59 Intake Total 1260 590 Output Total 1450 1950 200 Balance -190 -1950 390 Intake: Oral 1260 590 Output: Urine 1450 1950 200 Other: Voiding Method Urinal Urinal Urinal # Voids 1 1 # Bowel Movements 1 - Exam GENERAL DESCRIPTION: A middle-age male lying in bed in no distress RESPIRATORY SYSTEM: Unlabored breathing , decreased breath sounds at bases HEART: S1 S2 regular rate and rhythm , ABDOMEN: Soft , no tenderness EXTREMITIES: Left AKA stump with a blister no drainage no significant warmth or redness - Labs CBC & Chem 7: 02/25/23 07:35 02/25/23 07:35 Labs: Abnormal Lab Results - Last 24 Hours (Table) 02/25/23 02/25/23 02/25/23 Range/Units 07:35 07:35 11:36 MCHC 31.5 L (32.0-37.0) d/dL Plt Count 102 L (140-440) X 10*3/uL Lymphocytes # 0.72 L (0.90-5.00) X 10*3/uL Est GFR (CKD-EPI) 54 L (>=60) Glucose 129 H (70-110) mg/dL POC Glucose (mg/dL) 172 H (70-110) mg/dL Alkaline Phosphatase 128 H (41-126) U/L C-Reactive Protein 1.10 H (0.00-0.80) mg/dL Total Protein 6.1 L (6.2-8.2) d/dL 02/25/23 02/26/23 Range/Units 20:04 05:54 MCHC (32.0-37.0) d/dL Plt Count (140-440) X 10*3/uL Lymphocytes # (0.90-5.00) X 10*3/uL Est GFR (CKD-EPI) (>=60) Glucose (70-110) mg/dL POC Glucose (mg/dL) 168 H 123 H (70-110) mg/dL Alkaline Phosphatase (41-126) U/L C-Reactive Protein (0.00-0.80) mg/dL Total Protein (6.2-8.2) d/dL Assessment and Plan (1) Left leg cellulitis Current Visit: Yes Status: Acute Code(s): L03.116 - CELLULITIS OF LEFT LOWER LIMB SNOMED Code(s): 425286549 Plan: 1patient did have a complicated history of bilateral knee infection failing medical therapy status post bilateral [id number] amputation, and also have a history of AKA incision infection with MRSA, the patient now presenting to the hospital with a blister to the left AKA site and concern for some drainage however I was not able to appreciate any drainage or any fluctuation patient not running any fever and white count is normal. 2patient seemed to showing overall improvement to the left AKA stump currently with no open wound or any drainage we will consider short course of oral doxycycline on discharge and close the patient follow-up Dictation was produced using [employer] software. please excuse any grammatical, word or spelling errors. Time with Patient: Less than 30
--- NOTE | 2023-02-26 16:36 | P.DS ---
Providers Date of admission: 02/24/23 14:28 Expected date of discharge: 02/26/23 Attending physician: Manny Chino Consults: 02/24/23 14:26 Consult Physician Routine Consulting Provider: Taylor Mix Consult Reason/Comments: osteo Do you want consulting provider notified?: Yes Primary care physician: Jonathon Brownmley [facility] Course: Chief Complaint: Left leg stump infection This is a pleasant 57-year-old patient, follows with Dr. Dominguez. I evaluated the patient in the ER along with his . Patient does use a motorized wheelchair Patient's chronic stable medical conditions include diabetes mellitus, hypertension, paroxysmal atrial fibrillation hyperlipidemia. Patient's had bilateral above-knee amputation at [facility] , for bilateral infected knee joint prosthesis with MRSA. Patient has several course of infections. Has been admitted to different hospitals including [facility]. He does follow locally in town with Dr. Mendoza from [place]. Patient now presents with spot in the left stump that is losing with some blisters. There is some local redness. Denied any obvious tenderness no fever no chills. Patient also has a tracheostomy from February 2022. Oral intake is fair. Bowel movements are regular. February 25: Patient feeling well. No fever no chills. Discussed with ID Dr. Mendoza. Does not feel that is any deep infection. We both agreed to the same. Hence MRI is being canceled. Continue his IV vancomycin for today. No fever, white count normal. February 26: Patient doing well. Discussed with ID Dr. Jules. Due to course of doxycycline at home. For 7 days. Local symptoms greatly resolved. Discussed with patient. Past medical history to include: Diabetes mellitus, hyperlipidemia, hypertension, multiple MRSA infection, bilateral above-knee amputation 2021, permanent tracheostomy Social history: . Does use a motorized wheelchair to get about. No smoking or alcohol. Physical examination: VITAL SIGNS: 98, 80, 16, 144/88, 93% room air GENERAL:. Sitting up, comfortable EYES: Pupils equal. Conjunctiva normal. HEENT: External appearance of nose and ears normal, oral cavity grossly normal. NECK: JVD unable to assess; tracheostomy tube. HEART: First and second heart sounds are normal; no edema. LUNGS: Respiratory rate increased; decreased breath sound. ABDOMEN: Soft, nontender, liver spleen not palpable, no masses palpable. PSYCH: Alert and oriented x3; mood and affect normal. MUSCULOSKELETAL:No Clubbing/cyanosis;muscles-grossly intact. Bilateral above-knee amputation DERMATOLOGICAL: On the left leg stump on the medial aspect area of redness with some blister.-Improved INVESTIGATIONS, reviewed in the clinical context: February 25: White count 4.8 to globin 13.5 platelets and 0 to potassium 4.6 creatinine 1.5 Chest x-ray film personally reviewed by me-portable: Underpenetrated. Some atelectasis. EKG tracing personally reviewed by me-atrial flutter. Rate controlled White count 5 hemoglobin 14.1 platelets 118 sodium 139 potassium 5.8 BUN 30 creatinine 1.34 CRP 1.5 X-ray left femur: Lucency about distal femoral amputation. Osteomyelitis cannot be excluded. Soft tissue swelling compatible with cellulitis. Assessment and plan: -Acute infection of the left leg above-knee amputation stump in a patient's had multiple previous MRSA infections. Currently the patient does not have any fever or white count. : Improved IV vancomycin. Discussed with ID. Not felt to be deep infection. Cancel MRI. 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 -Morbid obesity BMI 124.6 Weight loss measures -Chronic tracheostomy placed in February 2022 -Diabetes mellitus type 2, on Trulicity Follow Accu-Cheks with sliding scale -Persistent atrial flutter, rate controlled. Tenormin. Eliquis. Telemetry monitoring -Depression not otherwise specified Celexa 20 mg a day -Chronic medical debility, uses a motorized wheelchair to get about -Full code Disposition: Home Plan - Discharge Summary New Discharge Prescriptions: New Doxycycline Hyclate 100 mg PO BID 7 Days #14 tab Continue Dulaglutide [Trulicity] 1 dose SQ DIRECTED atenoloL [Tenormin] 50 mg PO BID Aspirin EC [Ecotrin Low Dose] 81 mg PO HS Apixaban [Eliquis] 5 mg PO BID Furosemide [Lasix] 40 mg PO DAILY Citalopram Hydrobromide [Citalopram HBr] 20 mg PO DAILY Ferrous Sulfate [Iron (65 MG Elemental)] 325 mg PO DAILY Amiodarone [Cordarone] 100 mg PO DAILY Cholecalciferol [Vitamin D3 (25 Mcg = 1000 Iu)] 12.5 mcg PO DAILY Albuterol Nebulized [Ventolin Nebulized] 2.5 mg INHALATION RT-QID PRN PRN Reason: Shortness Of Breath Atorvastatin [Lipitor] 40 mg PO HS Magnesium Oxide [Magnesium] 500 mg PO HS Thiamine [Vitamin B-1] 100 mg PO DAILY Folic Acid 1 mg PO DAILY [place]-3 Fatty Acids [[place]-3] 1,000 mg PO DAILY Ascorbic Acid [Vitamin C] 500 mg PO DAILY Discharge Medication List Albuterol Nebulized [Ventolin Nebulized] 2.5 mg INHALATION RT-QID PRN 02/24/23 [History] Amiodarone [Cordarone] 100 mg PO DAILY 02/24/23 [History] Apixaban [Eliquis] 5 mg PO BID 02/24/23 [History] Ascorbic Acid [Vitamin C] 500 mg PO DAILY 02/24/23 [History] Aspirin EC [Ecotrin Low Dose] 81 mg PO HS 02/24/23 [History] Atorvastatin [Lipitor] 40 mg PO HS 02/24/23 [History] Cholecalciferol [Vitamin D3 (25 Mcg = 1000 Iu)] 12.5 mcg PO DAILY 02/24/23 [ History] Citalopram Hydrobromide [Citalopram HBr] 20 mg PO DAILY 02/24/23 [History] Dulaglutide [Trulicity] 1 dose SQ DIRECTED 02/24/23 [History] Ferrous Sulfate [Iron (65 MG Elemental)] 325 mg PO DAILY 02/24/23 [History] Folic Acid 1 mg PO DAILY 02/24/23 [History] Furosemide [Lasix] 40 mg PO DAILY 02/24/23 [History] Magnesium Oxide [Magnesium] 500 mg PO HS 02/24/23 [History] [place]-3 Fatty Acids [[place]-3] 1,000 mg PO DAILY 02/24/23 [History] Thiamine [Vitamin B-1] 100 mg PO DAILY 02/24/23 [History] atenoloL [Tenormin] 50 mg PO BID 02/24/23 [History] Doxycycline Hyclate 100 mg PO BID 7 Days #14 tab 02/26/23 [Rx] Follow up Appointment(s)/Referral(s): Jonathon Dominguez MD [Primary Care Provider] - 1-2 days (pt. wishes to make own maría) Taylor Mix MD [STAFF PHYSICIAN] - 1 Week (pt. wishes to make owan maría) Patient Instructions/Handouts: Cellulitis (GEN) Discharge Disposition: HOME WITH HOME HEALTH SERVICES
== END 2023-02-26 14:25 | disposition home health service (06) | DRG 565 ==
LOC: EC 10:31 → 4SSUR 14:28 → 3SCARD 02-25 10:19
PROVIDERS: ADMIT Hospitalist; ATTEND Hospitalist
DX: T87.44 Infection of amputation stump, left lower extremity (principal); I48.92 Unspecified atrial flutter; Z68.45 Body mass index [BMI] 70 or greater, adult; L03.116 Cellulitis of left lower limb; M86.8X6 Other osteomyelitis, lower leg; Y83.5 Amputation of limb(s) as the cause of abnormal reaction of the patient, or of later complication, without mention of misadventure at the time of the procedure; E66.01 Morbid (severe) obesity due to excess calories; E11.69 Type 2 diabetes mellitus with other specified complication; E11.649 Type 2 diabetes mellitus with hypoglycemia without coma; F32.A Depression, unspecified; R53.81 Other malaise; I10 Essential (primary) hypertension; E78.5 Hyperlipidemia, unspecified; Z86.14 Personal history of Methicillin resistant Staphylococcus aureus infection; Z89.611 Acquired absence of right leg above knee; Z89.612 Acquired absence of left leg above knee; Z93.0 Tracheostomy status; Z88.1 Allergy status to other antibiotic agents; Z88.2 Allergy status to sulfonamides; Z88.8 Allergy status to other drugs, medicaments and biological substances; Z91.048 Other nonmedicinal substance allergy status; Z71.3 Dietary counseling and surveillance; Y84.8 Other medical procedures as the cause of abnormal reaction of the patient, or of later complication, without mention of misadventure at the time of the procedure; G47.00 Insomnia, unspecified; F41.9 Anxiety disorder, unspecified; I48.0 Paroxysmal atrial fibrillation; K59.00 Constipation, unspecified; Z79.01 Long term (current) use of anticoagulants; Z79.899 Other long term (current) drug therapy
CPT/HCPCS: 36415; 71045; 80053; 83605; 83735; 84100; 85025; 86140; 93005; 96361; 96365; 96366; 96367; 96368; 99285

== ENCOUNTER 2023-12-07 14:44 | Emergency (ER) | payer MEDICARE ==
[2023-12-07 16:05] VITALS: RESP 18; TEMP 97.8
--- NOTE | 2023-12-07 16:33 | ED ---
General Adult HPI - General Chief complaint: Urogenital Stated complaint: Swollen Testes Time Seen by Provider: 12/07/23 16:15 Source: patient, RN notes reviewed, old records reviewed Mode of arrival: wheelchair - History of Present Illness Initial comments: Patient is a 58-year-old male who presents emergency department complaining of scrotal swelling, as well as difficulty with urination. Patient has a past medical history markable for having a trach, a flutter on blood thinners, diabetes, hypertension. 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 States that he pinched his scrotum and he thinks was his upper 2 and half weeks ago and since that time has had some edema of the testicles. States it is getting worse. Was seen last week at another ER and was diagnosed with a possible testicular contusion. Discharged home. States the swelling is getting worse and is uncomfortable and today he was having difficulty peeing which is why presents for evaluation. It is unknown when he can follow-up with urology as 1 provider is not ready until the end of December to accept him as a patient. He presents for evaluation at this time. - Related Data Home Medications Medication Instructions Recorded Confirmed Albuterol Nebulized [Ventolin 2.5 mg INHALATION RT-QID PRN 02/24/23 02/24/23 Nebulized] Amiodarone [Cordarone] 100 mg PO DAILY 02/24/23 02/24/23 Apixaban [Eliquis] 5 mg PO BID 02/24/23 02/24/23 Ascorbic Acid [Vitamin C] 500 mg PO DAILY 02/24/23 02/24/23 Aspirin EC [Ecotrin Low Dose] 81 mg PO HS 02/24/23 02/24/23 Atorvastatin [Lipitor] 40 mg PO HS 02/24/23 02/24/23 Cholecalciferol [Vitamin D3 (25 12.5 mcg PO DAILY 02/24/23 02/24/23 Mcg = 1000 Iu)] Citalopram Hydrobromide 20 mg PO DAILY 02/24/23 02/24/23 [Citalopram HBr] Dulaglutide [Trulicity] 1 dose SQ DIRECTED 02/24/23 02/24/23 Ferrous Sulfate [Iron (65 MG 325 mg PO DAILY 02/24/23 02/24/23 Elemental)] Folic Acid 1 mg PO DAILY 02/24/23 02/24/23 Furosemide [Lasix] 40 mg PO DAILY 02/24/23 02/24/23 Magnesium Oxide [Magnesium] 500 mg PO HS 02/24/23 02/24/23 Rangeley-3 Fatty Acids [Rangeley-3] 1,000 mg PO DAILY 02/24/23 02/24/23 Thiamine [Vitamin B-1] 100 mg PO DAILY 02/24/23 02/24/23 atenoloL [Tenormin] 50 mg PO BID 02/24/23 02/24/23 Previous Rx's Medication Instructions Recorded Doxycycline Hyclate 100 mg PO BID 7 Days #14 tab 02/26/23 Allergies Allergy/AdvReac Type Severity Reaction Status Date / Time ceftriaxone [From Rocephin] Allergy Anaphylaxis Verified 12/07/23 16:05 fenofibrate Allergy Rash/Hives Verified 12/07/23 16:05 nickel Allergy Unknown Verified 12/07/23 16:05 sulfamethizole Allergy Unknown Verified 12/07/23 16:05 sulfamethoxazole Allergy Rash/Hives Verified 12/07/23 16:05 [From Bactrim] trimethoprim [From Bactrim] Allergy Rash/Hives Verified 12/07/23 16:05 Review of Systems ROS Statement: Those systems with pertinent positive or pertinent negative responses have been documented in the HPI. Review of Systems: CONST: Denies fever EYES: Denies blurry vision ENT: Denies nasal congestion C/V: Denies Chest pain RESP: Denies shortness of breath GI: Denies abdominal pain : Endorses dysuria, scrotal edema SKIN: Denies rash. MSK: Denies joint pain. NEURO: Denies headache ROS Other: All systems not noted in ROS Statement are negative. Past Medical History Past Medical History: Diabetes Mellitus, Hyperlipidemia, Hypertension History of Any Multi-Drug Resistant Organisms: MRSA Date of last positivie culture/infection: 09/07/2020 MDRO Source:: bilat knees Past Surgical History: Back Surgery Additional Past Surgical History / Comment(s): bi-lat above the knee amputee 2021, perm Trach, back 2016 Past Psychological History: No Psychological Hx Reported Smoking Status: Never smoker Past Alcohol Use History: None Reported General Exam - General Exam Comments Initial Comments: General: Appears in no acute distress. HEAD: Normal with no signs of head trauma. EYES: EOMI ENT: Tracheostomy intact. RESPIRATORY: Clear breath sounds bilaterally. No wheezes, rales, or rhonchi. C/V: Regular rate and rhythm. S1 and S2 auscultated, peripheral pulses 2+ and intact throughout ABD: Abd is soft, nontender, nondistended. Scrotum is edematous. Somewhat erythematous but not impressive. No evidence of lesions or infection. Difficulty exposed to urethral meatus. EXT: Normal range of motion, no obvious deformity SKIN: No rashes or lesions observed on exposed skin. NEURO: Alert and oriented x 4. Course Vital Signs 12/07/23 12/07/23 15:56 19:30 Temperature 97.8 F Pulse Rate 93 82 Respiratory 18 18 Rate Blood Pressure 146/94 137/89 O2 Sat by Pulse 95 95 Oximetry Medical Decision Making - Medical Decision Making Was pt. sent in by a medical professional or institution (, PA, INSTANT PRINTER OPERATOR, urgent care, hospital, or usp...) When possible be specific @ -No Did you speak to anyone other than the patient for history (EMS, parent, family, police, friend...)? What history was obtained from this source @ -No Did you review nursing and triage notes (agree or disagree)? Why? @ -I reviewed and agree with nursing and triage notes Were old charts reviewed (outside hosp., previous admission, EMS record, old EKG, old radiological studies, urgent care reports/EKG's, usp records)? Report findings @ -I reviewed medication list that the patient brought with him which revealed that he is on Lasix as well as a blood thinner Eliquis. Differential Diagnosis (chest pain, altered mental status, abdominal pain women, abdominal pain men, vaginal bleeding, weakness, fever, dyspnea, syncope, headache, dizziness, GI bleed, back pain, seizure, CVA, palpatations, mental health, musculoskeletal)? @ -Scrotal edema, scrotal contusion, acute torsion, urinary retention. This list is not all inclusive. EKG interpreted by me (3pts min.). @ -None done X-rays interpreted by me (1pt min.). @ -None done CT interpreted by me (1pt min.). @ -None done U/S interpreted by me (1pt. min.). @ -Scrotal ultrasound reveals bilateral hydroceles and no evidence of testicular torsion. Soft tissue swelling present as well. Renal ultrasound unremarkable. What testing was considered but not performed or refused? (CT, X-rays, U/S, labs)? Why? @ -None What meds were considered but not given or refused? Why? @ -None Did you discuss the management of the patient with other professionals (professionals i.e. , PA, INSTANT PRINTER OPERATOR, lab, RT, psych nurse, web content & social media manager, sheep sorter, teacher, protocol officer, shelter case manager)? Give summary @ -No Was smoking cessation discussed for >3mins.? @ -No Was critical care preformed (if so, how long)? @ -No Were there social determinants of health that impacted care today? How? (Homelessness, low income, unemployed, alcoholism, drug addiction, transportation, low edu. Level, literacy, decrease access to med. care, long-term, rehab)? @ -No Was there de-escalation of care discussed even if they declined (Discuss DNR or withdrawal of care, Hospice)? DNR status @ -No What co-morbidities impacted this encounter? (DM, HTN, Smoking, COPD, CAD, Cancer, CVA, ARF, Chemo, Hep., AIDS, mental health diagnosis, sleep apnea, morbid obesity)? @ -None Was patient admitted / discharged? Hospital course, mention meds given and route, prescriptions, significant lab abnormalities, going to OR and other pertinent info. @ -Patient presents with scrotal edema that has been ongoing for 2 and half weeks but is worsening and now has some urinary retention associated with it. Scrotum is edematous. Difficulty identifying the urethral meatus. Did recommend Blackburn catheter placement to ensure appropriate opening for urinating and patient was in agreement this plan. Last urinated approximately 4 hours ago. He is on Lasix and this could be contributing but it could also be secondary to previous contusion diagnosed after pinching his scrotum 2 and half weeks ago. Will repeat ultrasound of the scrotum as well as bladder and kidneys. Will place Blackburn catheter if there is retention and obtain basic labs as well as urinalysis. Patient in agreement this plan. I did offer analgesia medications at patient request Tylenol. Patient's ultrasound unremarkable for testicular torsion. Does show bilateral hydroceles as well as soft tissue swelling supportive more of a volume overload state. Renal ultrasound negative. Patient's labs remarkable for chronically lower platelet count of 99. This is similar to level in January 2023. Labs othe rwise remarkable for slight elevation in LFTs which is also chronic for the patient. Patient is hyperglycemic. No other obvious findings on workup. Reevaluation, I did discuss with the patient. We did not place Blackburn catheter as bladder scan showed postvoid residual of only 10 to 30 cc of urine. This is normal. I discussed this with the patient. I do believe he is likely experiencing a volume overload state. He is already on Lasix and may require increased doses. I will provide him with a one-time dose of IV Lasix at this time. He does not need to be admitted for this but I would like him to follow- up with his PCP this week. He was in agreement this plan. I also will provide him with urology contact info. Patient was in agreement this plan. He will be discharged home at this time. I instructed the patient to follow up with their PCP in the next 1-3 days. I provided contact information for follow up with urology. I explained that the patient should return to the emergency department if they experience any worsening symptoms. Strict return precautions were discussed with the patient. The patient expressed understanding of these instructions. I answered all questions that the patient had. The patient was discharged home in good condition with their prescriptions and follow up information. Undiagnosed new problem with uncertain prognosis? @ -No Drug Therapy requiring intensive monitoring for toxicity (Heparin, Nitro, Insulin, Cardizem)? @ -No Were any procedures done? @ -No Diagnosis/symptom? @ -Bilateral hydroceles, scrotal edema Acute, or Chronic, or Acute on Chronic? @ -Acute Uncomplicated (without systemic symptoms) or Complicated (systemic symptoms)? @ -Uncomplicated Side effects of treatment? @ -None Exacerbation, Progression, or Severe Exacerbation] @ -No Poses a threat to life or bodily function? @ - unlikely - Lab Data Result diagrams: 12/07/23 16:41 12/07/23 16:41 Lab Results 12/07/23 12/07/23 12/07/23 Range/Units 16:41 16:41 16:41 WBC 5.1 (3.8-10.6) k/uL RBC 4.30 (4.30-5.90) m/uL Hgb 13.6 (13.0-17.5) gm/dL Hct 42.7 (39.0-53.0) % MCV 99.4 (80.0-100.0) fL MCH 31.7 (25.0-35.0) pg MCHC 31.9 (31.0-37.0) g/dL RDW 14.1 (11.5-15.5) % Plt Count 99 L (150-450) k/uL MPV 9.9 Neutrophils % 73 % Lymphocytes % 13 % Monocytes % 8 % Eosinophils % 3 % Basophils % 1 % Neutrophils # 3.7 (1.3-7.7) k/uL Lymphocytes # 0.7 L (1.0-4.8) k/uL Monocytes # 0.4 (0-1.0) k/uL Eosinophils # 0.2 (0-0.7) k/uL Basophils # 0.1 (0-0.2) k/uL Manual Slide Review Performed Large Platelets Present PT 10.9 (10.0-12.5) sec INR 1.0 (<1.2) APTT 26.4 (22.0-30.0) sec Sodium (137-145) mmol/L Potassium (3.5-5.1) mmol/L Chloride (98-107) mmol/L Carbon Dioxide (22-30) mmol/L Anion Gap mmol/L BUN (9-20) mg/dL Creatinine (0.66-1.25) mg/dL Est GFR (CKD-EPI)AfAm (>60 ml/min/1.73 sqM) Est GFR (CKD-EPI)NonAf (>60 ml/min/1.73 sqM) Glucose (74-99) mg/dL Calcium (8.4-10.2) mg/dL Total Bilirubin (0.2-1.3) mg/dL AST (17-59) U/L ALT (4-49) U/L Alkaline Phosphatase (38-126) U/L Total Protein (6.3-8.2) g/dL Albumin (3.5-5.0) g/dL Urine Color Colorless Urine Appearance Clear (Clear) Urine pH 6.0 (5.0-8.0) Ur Specific [place] 1.009 (1.001-1.035) Urine Protein 2+ H (Negative) Urine Glucose (UA) 4+ H (Negative) Urine Ketones Negative (Negative) Urine Blood Trace H (Negative) Urine Nitrite Negative (Negative) Urine Bilirubin Negative (Negative) Urine Urobilinogen <2.0 (<2.0) mg/dL Ur Leukocyte Esterase Negative (Negative) Urine RBC 2 (0-5) /hpf Urine WBC 1 (0-5) /hpf Urine Mucus Rare H (None) /hpf 12/07/23 Range/Units 16:41 WBC (3.8-10.6) k/uL RBC (4.30-5.90) m/uL Hgb (13.0-17.5) gm/dL Hct (39.0-53.0) % MCV (80.0-100.0) fL MCH (25.0-35.0) pg MCHC (31.0-37.0) g/dL RDW (11.5-15.5) % Plt Count (150-450) k/uL MPV Neutrophils % % Lymphocytes % % Monocytes % % Eosinophils % % Basophils % % Neutrophils # (1.3-7.7) k/uL Lymphocytes # (1.0-4.8) k/uL Monocytes # (0-1.0) k/uL Eosinophils # (0-0.7) k/uL Basophils # (0-0.2) k/uL Manual Slide Review Large Platelets PT (10.0-12.5) sec INR (<1.2) APTT (22.0-30.0) sec Sodium 133 L (137-145) mmol/L Potassium 5.1 (3.5-5.1) mmol/L Chloride 99 (98-107) mmol/L Carbon Dioxide 32 H (22-30) mmol/L Anion Gap 2 mmol/L BUN 34 H (9-20) mg/dL Creatinine 1.51 H (0.66-1.25) mg/dL Est GFR (CKD-EPI)AfAm 58 (>60 ml/min/1.73 sqM) Est GFR (CKD-EPI)NonAf 50 (>60 ml/min/1.73 sqM) Glucose 381 H (74-99) mg/dL Calcium 8.9 (8.4-10.2) mg/dL Total Bilirubin 1.0 (0.2-1.3) mg/dL AST 77 H (17-59) U/L ALT 59 H (4-49) U/L Alkaline Phosphatase 147 H (38-126) U/L Total Protein 6.2 L (6.3-8.2) g/dL Albumin 3.4 L (3.5-5.0) g/dL Urine Color Urine Appearance (Clear) Urine pH (5.0-8.0) Ur Specific [place] (1.001-1.035) Urine Protein (Negative) Urine Glucose (UA) (Negative) Urine Ketones (Negative) Urine Blood (Negative) Urine Nitrite (Negative) Urine Bilirubin (Negative) Urine Urobilinogen (<2.0) mg/dL Ur Leukocyte Esterase (Negative) Urine RBC (0-5) /hpf Urine WBC (0-5) /hpf Urine Mucus (None) /hpf Disposition Clinical Impression: Hydrocele, bilateral, Scrotal edema Disposition: HOME SELF-CARE Condition: Good Instructions (If sedation given, give patient instructions): Hydrocele (ED) Is patient prescribed a controlled substance at d/c from ED?: No Referrals: Jonathon Dominguez MD [Primary Care Provider] - 1-2 days Conner Zelaya MD [STAFF PHYSICIAN] - 1-2 days Time of Disposition: 18:41
[2023-12-07] MEDS: ACETAMINOPHEN TAB 500 MG TAB PO STA (17:16)
[2023-12-07 17:30] LABS: Basophils # (A) 0.1 k/uL (0-0.2); Basophils % (A) 1 %; Eosinophils # (A) 0.2 k/uL (0-0.7); Eosinophils % (A) 3 %; HCT 42.7 % (39.0-53.0); HGB 13.6 gm/dL (13.0-17.5); Lymphocytes # (A) 0.7 k/uL (1.0-4.8); Lymphocytes % (A) 13 %; MCH 31.7 pg (25.0-35.0); MCHC 31.9 g/dL (31.0-37.0); MCV 99.4 fL (80.0-100.0); Mean Platelet Volume 9.9; Monocytes # (A) 0.4 k/uL (0-1.0); Monocytes % (A) 8 %; Neutrophils # (A) 3.7 k/uL (1.3-7.7); Neutrophils % (A) 73 %; RDW 14.1 % (11.5-15.5); WBC 5.1 k/uL (3.8-10.6)
[2023-12-07 17:32] LABS: Appearance,Urine Clear (Clear); Bilirubin,Urine Negative (Negative); Blood,Urine Trace (Negative); Color,Urine Colorless; Glucose,Urine (UA) 4+ (Negative); Ketones,Urine Negative (Negative); Leukocyte Esterase,Urine Negative (Negative); Mucus,Urine Rare /hpf; Nitrite,Urine Negative (Negative); Protein,Urine 2+ (Negative); RBC,Urine 2 /hpf (0-5); Specific Gravity,Urine 1.009 (1.001-1.035); Urobilinogen,Urine <2.0 mg/dL (<2.0); WBC,Urine 1 /hpf (0-5)
[2023-12-07 17:39] LABS: ALT 59 U/L (4-49); African American GFR (CKD) 58 (>60 ml/min/1.73 sqM); Anion Gap 2 mmol/L; Blood Urea Nitrogen 34 mg/dL (9-20); Calcium 8.9 mg/dL (8.4-10.2); Carbon Dioxide 32 mmol/L (22-30); Chloride 99 mmol/L (98-107); Glucose 381 mg/dL (74-99); Non-African American GFR(CKD) 50 (>60 ml/min/1.73 sqM); Sodium 133 mmol/L (137-145)
[2023-12-07 17:42] LABS: Potassium 5.1 mmol/L (3.5-5.1)
[2023-12-07 17:43] LABS: AST 77 U/L (17-59); Albumin 3.4 g/dL (3.5-5.0); Alkaline Phosphatase 147 U/L (38-126); Partial Thromboplastin Time 26.4 sec (22.0-30.0); Prothrombin Time 10.9 sec (10.0-12.5); Total Protein 6.2 g/dL (6.3-8.2)
--- NOTE | 2023-12-07 18:03 | US ---
EXAMINATION TYPE: US scrotum with doppler. Grayscale and color Doppler Duplex imaging performed of marlon butterfield scrotum. DATE OF EXAM: 12/07/2023 COMPARISON: NONE CLINICAL INDICATION: Male, 58 years old with history of dysuria, scrotal edema; Scrotal swelling for a few weeks. Patient states no pain with swelling. Swelling is making patient unable to urinate. Jane ent morbidly obese with bilateral leg amputation EXAM MEASUREMENTS: TESTICLES: Right Testicle: 3.9 x 2.5 x 3.0 cm Left Testicle: 4.1 x 3.1 x 3.1 cm EPIDIDYMIS HEAD: Right Epididymis: 1.0 x 0.8 x 1.2 cm Left Epididymis: 0.9 x 1.0 x 0.9 cm Doppler performed to assess for testicular vascularity; good bilateral color flow and waveforms are s een. There is no evidence of testicular torsion. Bilateral scrotal swelling, right measures 3.6cm, left measures 3.9cm. Presence of hydroceles: Yes, bilaterally. Presence of varicoceles: No IMPRESSION: 1. Unremarkable testicles without mass or torsion. 2. Marked soft tissue swelling of the scrotum. 3. [id number] bilateral hydroceles.
--- NOTE | 2023-12-07 18:12 | US ---
EXAMINATION TYPE: US renals and bladder DATE OF EXAM: 12/07/2023 COMPARISON: 08/08/2019 CLINICAL INDICATION: Male, 58 years old with history of scrotal edema; Patient states unable to urina te due to scrotal swelling. Patient has bilateral leg amputation. EXAM MEASUREMENTS: Right Kidney: Unable to visualize Left Kidney: 12.2 x 8.2 x 6.5 cm Very limited examination due to morbidly obese patient, lack of mobility, and overlying bowel gas Right Kidney: Unable to visualize due to body habitus and lack of patient mobility. Left Kidney: Enlarged, no hydronephrosis or masses seen as best visualized today Bladder: wnl as best seen today Bilateral Jets seen: No IMPRESSION: 1. Markedly limited study due to the patient's body habitus and lack of mobility. 2. Right kidney not visualized. 3. No left hydronephrosis. 4. Limited evaluation of the left kidney for masses or calcifications.
[2023-12-07 18:19] LABS: Large Platelets Present; Platelet Count 99 k/uL (150-450)
[2023-12-07] MEDS: FUROSEMIDE 10 MG/ML 4 ML VIAL IV STA (19:19)
[2023-12-07 20:17] VITALS: BP 137/89; PULSE 82
== END 2023-12-07 19:30 | disposition home or self-care (01) ==
LOC: EC 14:44
DX: N43.3 Hydrocele, unspecified (principal); Z88.2 Allergy status to sulfonamides; Z88.1 Allergy status to other antibiotic agents; Z88.8 Allergy status to other drugs, medicaments and biological substances
CPT/HCPCS: 51798; 36415; 80053; 85025; 85610; 85730; 81001; 93975; 76870; 76770; 99284; 96374; J1940

== ENCOUNTER 2024-11-18 15:02 | Emergency (ER) | payer MEDICARE ==
[2024-11-18 15:13] VITALS: TEMP 98.6
--- NOTE | 2024-11-18 16:50 | ED ---
Back Pain HPI - General Chief Complaint: Back Pain/Injury Stated Complaint: Back Pain Time Seen by Provider: 11/18/24 16:44 Source: patient, family, EMS, RN notes reviewed - History of Present Illness Initial Comments: 59-year-old male presenting for low back pain x 2 weeks. Describes a constant, throbbing pain in the lower back that radiates to the bilateral hips and down the right leg. Denies injury or trauma or falls. Reports pain is worse with movement. Patient has a history of multiple low back surgeries in 2022 at [facility]. Patient also has bilateral [id number] amputations due to MRSA infection and sepsis. Patient was seen at [facility] ER 5 days ago where they performed x-ray and lab work and told him everything was normal. They prescribed him [place] which he states improved the pain but pain returned since the [place] ran out. Patient continues to experience 7 out of 10 pain. Denies bowel or bladder incontinence. Denies saddle anesthesia. Denies fever, chills, abdominal pain, chest pain, shortness of breath, urinary symptoms. On Eliquis. Patient was provided with 6 mg morphine and 4 mg Zofran en route. - Related Data Home Medications Medication Instructions Recorded Confirmed Albuterol Nebulized [Ventolin 2.5 mg INHALATION RT-QID PRN 02/24/23 02/24/23 Nebulized] Amiodarone [Cordarone] 100 mg PO DAILY 02/24/23 02/24/23 Apixaban [Eliquis] 5 mg PO BID 02/24/23 02/24/23 Ascorbic Acid [Vitamin C] 500 mg PO DAILY 02/24/23 02/24/23 Aspirin EC [Ecotrin Low Dose] 81 mg PO HS 02/24/23 02/24/23 Atorvastatin [Lipitor] 40 mg PO HS 02/24/23 02/24/23 Cholecalciferol [Vitamin D3 (25 12.5 mcg PO DAILY 02/24/23 02/24/23 Mcg = 1000 Iu)] Citalopram Hydrobromide 20 mg PO DAILY 02/24/23 02/24/23 [Citalopram HBr] Dulaglutide [Trulicity] 1 dose SQ DIRECTED 02/24/23 02/24/23 Ferrous Sulfate [Iron (65 MG 325 mg PO DAILY 02/24/23 02/24/23 Elemental)] Folic Acid 1 mg PO DAILY 02/24/23 02/24/23 Furosemide [Lasix] 40 mg PO DAILY 02/24/23 02/24/23 Magnesium Oxide [Magnesium] 500 mg PO HS 02/24/23 02/24/23 Seaside-3 Fatty Acids [Seaside-3] 1,000 mg PO DAILY 02/24/23 02/24/23 Thiamine [Vitamin B-1] 100 mg PO DAILY 02/24/23 02/24/23 atenoloL [Tenormin] 50 mg PO BID 02/24/23 02/24/23 Previous Rx's Medication Instructions Recorded Doxycycline Hyclate 100 mg PO BID 7 Days #14 tab 02/26/23 Cyclobenzaprine [Flexeril] 10 mg PO TID PRN #15 tab 11/18/24 Lidocaine 5% Patch [Lidoderm 5% 1 each TP DAILY PRN 7 Days #7 patch 11/18/24 Patch] Allergies Allergy/AdvReac Type Severity Reaction Status Date / Time ceftriaxone [From Rocephin] Allergy Anaphylaxis Verified 12/07/23 16:05 fenofibrate Allergy Rash/Hives Verified 12/07/23 16:05 guaifenesin [From Mucinex] Allergy Rash/Hives Verified 11/18/24 15:14 nickel Allergy Unknown Verified 12/07/23 16:05 sulfamethizole Allergy Unknown Verified 12/07/23 16:05 sulfamethoxazole Allergy Rash/Hives Verified 12/07/23 16:05 [From Bactrim] trimethoprim [From Bactrim] Allergy Rash/Hives Verified 12/07/23 16:05 Review of Systems ROS Statement: Those systems with pertinent positive or pertinent negative responses have been documented in the HPI. ROS Other: All systems not noted in ROS Statement are negative. Past Medical History Past Medical History: Diabetes Mellitus, Hyperlipidemia, Hypertension Additional Past Medical History / Comment(s): gout, [place] syndrome History of Any Multi-Drug Resistant Organisms: MRSA Date of last positivie culture/infection: 09/07/2020 MDRO Source:: bilat knees Past Surgical History: Back Surgery Additional Past Surgical History / Comment(s): bi-lat above the knee amputee 2021, perm Trach, back 2016 Past Psychological History: No Psychological Hx Reported Smoking Status: Never smoker Past Alcohol Use History: None Reported Past Drug Use History: None Reported General Exam General appearance: alert, in no apparent distress Head exam: Present: atraumatic, normocephalic, normal inspection Eye exam: Present: normal appearance, PERRL, EOMI. Absent: scleral icterus, conjunctival injection, periorbital swelling GI/Abdominal exam: Present: soft, normal bowel sounds. Absent: distended, tenderness, guarding, rebound, rigid Back exam: Present: normal inspection, full ROM, paraspinal tenderness, other (Full strength and range of motion of bilateral hips. No saddle anesthesia. Full sensation of bilateral upper legs). Absent: tenderness, CVA tenderness (R), CVA tenderness (L), vertebral tenderness Neurological exam: Present: alert, oriented X3 Psychiatric exam: Present: normal affect, normal mood Skin exam: Present: warm, dry, intact, normal color. Absent: rash Course Vital Signs 11/18/24 11/18/24 11/18/24 15:06 17:28 20:52 Temperature 98.6 F Pulse Rate 86 89 70 Respiratory 20 18 20 Rate Blood Pressure 144/89 138/79 134/79 O2 Sat by Pulse 96 94 L 94 L Oximetry Medical Decision Making - Medical Decision Making Was pt. sent in by a medical professional or institution ([facility], [employer] HELPER, urgent care, hospital, or prison...) When possible be specific @ -No Did you speak to anyone other than the patient for history (EMS, parent, family, police, friend...)? What history was obtained from this source @ - supplemented history Did you review nursing and triage notes (agree or disagree)? Why? @ -I reviewed and agree with nursing and triage notes Were old charts reviewed (outside hosp., previous admission, EMS record, old EKG, old radiological studies, urgent care reports/EKG's, prison records)? Report findings @ -No old charts were reviewed Differential Diagnosis (chest pain, altered mental status, abdominal pain women, abdominal pain men, vaginal bleeding, weakness, fever, dyspnea, syncope, headache, dizziness, GI bleed, back pain, seizure, CVA, palpatations, mental health, musculoskeletal)? @ -Differential Back Pain: Strain, zoster, cauda equina syndrome, epidural abscess, vertebral osteomyelitis, discitis, fracture, subluxation, disc herniation, DJD, spinal stenosis, dissection, AAA, pancreatitis, peptic ulcer disease, pyelonephritis, kidney stone, this is not meant to be an all-inclusive list. EKG interpreted by me (3pts min.). @ -None X-rays interpreted by me (1pt min.). @ -X-ray lumbar spine reveals no acute disease CT interpreted by me (1pt min.). @ -CT abdomen pelvis with contrast reveals no acute disease U/S interpreted by me (1pt. min.). @ -None done What testing was considered but not performed or refused? (CT, X-rays, U/S, labs)? Why? @ -None What meds were considered but not given or refused? Why? @ -None Did you discuss the management of the patient with other professionals (professionals i.e. , PA, GLASS ETCHER HELPER, lab, RT, psych nurse, clinical social work aide, heading up machine operator, teacher, occupational health and safety officer, immigration case worker)? Give summary @ -No Was smoking cessation discussed for >3mins.? @ -No Was critical care preformed (if so, how long)? @ -No Were there social determinants of health that impacted care today? How? (Homelessness, low income, unemployed, alcoholism, drug addiction, transportation, low edu. Level, literacy, decrease access to med. care, penitentiary, rehab)? @ -No Was there de-escalation of care discussed even if they declined (Discuss DNR or withdrawal of care, Hospice)? DNR status @ -No What co-morbidities impacted this encounter? (DM, HTN, Smoking, COPD, CAD, Cancer, CVA, ARF, Chemo, Hep., AIDS, mental health diagnosis, sleep apnea, morbid obesity)? @ -None Was patient admitted / discharged? Hospital course, mention meds given and route, prescriptions, significant lab abnormalities, going to OR and other pertinent info. @ -Discharge. 59-year-old male presenting for low back pain x 2 weeks. No red flag symptoms. No injury or trauma. Vital signs within acceptable limits. Patient was provided with appropriate analgesics. Lab work largely unremarkable, creatinine/BUN comparable to baseline. Urinalysis remarkable for 1+ protein, trace blood not indicative of UTI. Imaging including CT abdomen pelvis and x-ray lumbar spine suboptimal study due to patient body habitus however no evidence of acute disease. Discussed negative results with patient. I do not identify emergent etiology causing symptoms. Symptoms likely due to muscular strain. Appropriate return precautions and follow-up care discussed. Prescribed outpatient course of Flexeril and lidocaine patches. Case was discussed with my ED attending Dr. Taylor Undiagnosed new problem with uncertain prognosis? @ -No Drug Therapy requiring intensive monitoring for toxicity (Heparin, Nitro, Insulin, Cardizem)? @ -No Were any procedures done? @ -No Diagnosis/symptom? @ -Low back strain Acute, or Chronic, or Acute on Chronic? @ -Acute Uncomplicated (without systemic symptoms) or Complicated (systemic symptoms)? @ -Uncomplicated Side effects of treatment? @ -No Exacerbation, Progression, or Severe Exacerbation? @ -No Poses a threat to life or bodily function? How? (Chest pain, [place], CA, pneumonia, PE, COPD, DKA, ARF, appy, cholecystitis, CVA, Diverticulitis, Homicidal, Suicidal, threat to staff... and all critical care pts) @ -No - Lab Data Result diagrams: 11/18/24 17:15 11/18/24 17:15 Lab Results 11/18/24 11/18/24 11/18/24 Range/Units 17:15 17:15 17:15 WBC 6.30 (4.50-10.00) 10*3/uL RBC 4.26 L (4.40-5.60) 10*6/uL Hgb 12.7 L (13.0-17.0) g/dL Hct 39.5 L (39.6-50.0) % MCV 92.7 (80.0-97.0) fL MCH 29.8 (27.0-32.0) pg MCHC 32.2 (32.0-37.0) g/dL Plt Count 163 (140-440) 10*3/uL MPV 11.4 (9.5-12.2) fL Immature Gran % (Auto) 0.3 % Neutrophils % 76.4 % Lymphocytes % 9.8 % Monocytes % 8.6 % Eosinophils % 3.5 % Basophils % 1.4 % Immature Gran # 0.02 (0.00-0.04) 10*3/uL Neutrophils # 4.81 (1.80-7.70) 10*3/uL Lymphocytes # 0.62 L (0.90-5.00) 10*3/uL Monocytes # 0.54 (0.20-1.00) 10*3/uL Eosinophils # 0.22 (0.04-0.35) 10*3/uL Basophils # 0.09 (0.00-0.10) 10*3/uL Sodium 136 L (137-145) mmol/L Potassium 3.9 (3.5-5.1) mmol/L Chloride 99 (98-107) mmol/L Carbon Dioxide 30 (22-30) mmol/L Anion Gap 7 mmol/L BUN 38 H (9-20) mg/dL Creatinine 1.56 H (0.66-1.25) mg/dL Est GFR (CKD-EPI)AfAm 56 (>60 ml/min/1.73 sqM) Est GFR (CKD-EPI)NonAf 48 (>60 ml/min/1.73 sqM) Glucose 90 (74-99) mg/dL Plasma Lactic Acid Jose Eduardo 0.8 (0.7-2.0) mmol/L Calcium 8.7 (8.4-10.2) mg/dL Total Bilirubin 0.4 (0.2-1.3) mg/dL AST 30 (17-59) U/L ALT 27 (4-49) U/L Alkaline Phosphatase 87 (38-126) U/L Total Protein 5.7 L (6.3-8.2) g/dL Albumin 3.1 L (3.5-5.0) g/dL Urine Color Urine Appearance (Clear) Urine pH (5.0-8.0) Ur Specific [place] (1.001-1.035) Urine Protein (Negative) Urine Glucose (UA) (Negative) Urine Ketones (Negative) Urine Blood (Negative) Urine Nitrite (Negative) Urine Bilirubin (Negative) Urine Urobilinogen (<2.0) mg/dL Ur Leukocyte Esterase (Negative) Urine RBC (0-5) /hpf Urine WBC (0-5) /hpf 11/18/24 Range/Units 17:43 WBC (4.50-10.00) 10*3/uL RBC (4.40-5.60) 10*6/uL Hgb (13.0-17.0) g/dL Hct (39.6-50.0) % MCV (80.0-97.0) fL MCH (27.0-32.0) pg MCHC (32.0-37.0) g/dL Plt Count (140-440) 10*3/uL MPV (9.5-12.2) fL Immature Gran % (Auto) % Neutrophils % % Lymphocytes % % Monocytes % % Eosinophils % % Basophils % % Immature Gran # (0.00-0.04) 10*3/uL Neutrophils # (1.80-7.70) 10*3/uL Lymphocytes # (0.90-5.00) 10*3/uL Monocytes # (0.20-1.00) 10*3/uL Eosinophils # (0.04-0.35) 10*3/uL Basophils # (0.00-0.10) 10*3/uL Sodium (137-145) mmol/L Potassium (3.5-5.1) mmol/L Chloride (98-107) mmol/L Carbon Dioxide (22-30) mmol/L Anion Gap mmol/L BUN (9-20) mg/dL Creatinine (0.66-1.25) mg/dL Est GFR (CKD-EPI)AfAm (>60 ml/min/1.73 sqM) Est GFR (CKD-EPI)NonAf (>60 ml/min/1.73 sqM) Glucose (74-99) mg/dL Plasma Lactic Acid Jose Eduardo (0.7-2.0) mmol/L Calcium (8.4-10.2) mg/dL Total Bilirubin (0.2-1.3) mg/dL AST (17-59) U/L ALT (4-49) U/L Alkaline Phosphatase (38-126) U/L Total Protein (6.3-8.2) g/dL Albumin (3.5-5.0) g/dL Urine Color Colorless Urine Appearance Clear (Clear) Urine pH 6.5 (5.0-8.0) Ur Specific [place] 1.009 (1.001-1.035) Urine Protein 1+ H (Negative) Urine Glucose (UA) Negative (Negative) Urine Ketones Negative (Negative) Urine Blood Trace H (Negative) Urine Nitrite Negative (Negative) Urine Bilirubin Negative (Negative) Urine Urobilinogen <2.0 (<2.0) mg/dL Ur Leukocyte Esterase Negative (Negative) Urine RBC 2 (0-5) /hpf Urine WBC <1 (0-5) /hpf Disposition Clinical Impression: Low back strain Disposition: HOME SELF-CARE Condition: Stable Instructions (If sedation given, give patient instructions): Acute Low Back Pain (ED) Additional Instructions: Use lidocaine patches and take Flexeril as needed for pain. Please return to the Emergency Department if symptoms worsen or any other concerns. Prescriptions: Cyclobenzaprine [Flexeril] 10 mg PO TID PRN #15 tab PRN Reason: Muscle Spasm Lidocaine 5% Patch [Lidoderm 5% Patch] 1 each TP DAILY PRN 7 Days #7 patch PRN Reason: Pain Is patient prescribed a controlled substance at d/c from ED?: No Referrals: Jonathon Dominguez MD [Primary Care Provider] - 1-2 days Time of Disposition: 21:10
[2024-11-18] MEDS: LIDOCAINE 4% PATCH TOPICAL ONE (17:16)
[2024-11-18] MEDS: ACETAMINOPHEN TAB 500 MG TAB PO STA (17:16)
[2024-11-18] MEDS: ORPHENADRINE 30 MG/ML 2 ML VIAL IVP STA (17:27)
[2024-11-18 17:32] LABS: Basophils # (A) 0.09 10*3/uL (0.00-0.10); Basophils % (A) 1.4 %; Eosinophils # (A) 0.22 10*3/uL (0.04-0.35); Eosinophils % (A) 3.5 %; HCT 39.5 % (39.6-50.0); HGB 12.7 g/dL (13.0-17.0); Lymphocytes # (A) 0.62 10*3/uL (0.90-5.00); Lymphocytes % (A) 9.8 %; MCH 29.8 pg (27.0-32.0); MCHC 32.2 g/dL (32.0-37.0); MCV 92.7 fL (80.0-97.0); Mean Platelet Volume 11.4 fL (9.5-12.2); Monocytes # (A) 0.54 10*3/uL (0.20-1.00); Monocytes % (A) 8.6 %; Neutrophils # (A) 4.81 10*3/uL (1.80-7.70); Neutrophils % (A) 76.4 %; Platelet Count 163 10*3/uL (140-440); RBC 4.26 10*6/uL (4.40-5.60); RDW 14.1 % (11.5-14.5)
[2024-11-18 17:48] LABS: Appearance,Urine Clear (Clear); Bilirubin,Urine Negative (Negative); Blood,Urine Trace (Negative); Color,Urine Colorless; Glucose,Urine (UA) Negative (Negative); Ketones,Urine Negative (Negative); Leukocyte Esterase,Urine Negative (Negative); Nitrite,Urine Negative (Negative); PH, Urine 6.5 (5.0-8.0); Protein,Urine 1+ (Negative); RBC,Urine 2 /hpf (0-5); Specific Gravity,Urine 1.009 (1.001-1.035); Urobilinogen,Urine <2.0 mg/dL (<2.0); WBC,Urine <1 /hpf (0-5)
[2024-11-18 17:55] LABS: ALT 27 U/L (4-49); AST 30 U/L (17-59); African American GFR (CKD) 56 (>60 ml/min/1.73 sqM); Albumin 3.1 g/dL (3.5-5.0); Alkaline Phosphatase 87 U/L (38-126); Anion Gap 7 mmol/L; Blood Urea Nitrogen 38 mg/dL (9-20); Calcium 8.7 mg/dL (8.4-10.2); Carbon Dioxide 30 mmol/L (22-30); Chloride 99 mmol/L (98-107); Glucose 90 mg/dL (74-99); Non-African American GFR(CKD) 48 (>60 ml/min/1.73 sqM); Potassium 3.9 mmol/L (3.5-5.1); Sodium 136 mmol/L (137-145); Total Bilirubin 0.4 mg/dL (0.2-1.3); Total Protein 5.7 g/dL (6.3-8.2)
[2024-11-18] MEDS: HYDROcodone/APAP 10-325MG 1 EACH TAB PO ONE (19:57)
--- NOTE | 2024-11-18 20:01 | XR ---
EXAMINATION TYPE: XR lumbar spine 2 or 3V DATE OF EXAM: 11/18/2024 CLINICAL INDICATION: Male, 59 years old with history of low back pain, pain TECHNIQUE: Frontal and lateral images of the lumbar spine are obtained. COMPARISON: None FINDINGS: Exam suboptimal due to patient's large body habitus particularly lateral images are signif icantly limited There are 5 lumbar type vertebral bodies identified. There is levoconvex scoliosis ce ntered at L3 level. There are posterior intraventricular alma delia and screws bilaterally and artificial di sc material running from L3 through S1 levels. There is advanced disc space narrowing L2-L3 level. Th ere is moderate to advanced disc space narrowing with vacuum disc phenomenon at the L1-L2 level. [place] llic IVC filter overlies the right L1 level. IMPRESSION: As above. [facility], , 11/18/2024 7:58 PM
--- NOTE | 2024-11-18 20:18 | CT ---
EXAMINATION TYPE: CT abdomen pelvis w con DATE OF EXAM: 11/18/2024 COMPARISON: NONE CLINICAL INDICATION: Male, 59 years old with history of back pain, back pain, abdominal pain TECHNIQUE: CT scan of the abdomen and pelvis is performed with IV Contrast, patient injected with 100 mL of Isov ue 300., (none if empty) Oral contrast used: without Oral Contrast (none if empty) CT DLP: 4601.2 mGycm, Automated exposure control for dose reduction was used. FINDINGS: Exam is suboptimal due to patient's large body habitus. LUNG BASES: Coronary artery calcification is present. LIVER/GB: No significant abnormality is appreciated. PANCREAS: No significant abnormality is seen. SPLEEN: No significant abnormality is seen. ADRENALS: No significant abnormality is seen. KIDNEYS: Areas of cortical volume loss and lobulation of both kidneys. Their is 2.6 cm exophytic simp le cyst axial image 56 right kidney that does not require follow-up. Moderately distended bladder. BOWEL: No abnormal small or large bowel dilatation. PROSTATE/SEMINAL VESICLES: No gross abnormality seen. LYMPH NODES: A few prominent but subcentimeter lymph nodes in the retroperitoneum on the mid to lowe r abdomen No greater than 1cm abdominal or pelvic lymph nodes are appreciated. OSSEOUS STRUCTURES: Postsurgical change L3-S1 levels. Scoliotic curvature is seen. Narrowing of both sacroiliac joints is present. OTHER: Small fat-containing left inguinal hernia. Moderate-size fat-containing left periumbilical her sara. IMPRESSION: Suboptimal study. No significant acute finding is seen to account for patient's clinical symptoms. Moderate distention of bladder is seen. [facility], , 11/18/2024 8:16 PM
[2024-11-18 20:54] VITALS: RESP 20
[2024-11-18 21:25] VITALS: BP 140/72; PULSE 79
== END 2024-11-18 21:28 | disposition home or self-care (01) ==
LOC: EC 15:02
DX: S39.012A Strain of muscle, fascia and tendon of lower back, initial encounter (principal); Z88.1 Allergy status to other antibiotic agents; Z88.2 Allergy status to sulfonamides; Z91.09 Other allergy status, other than to drugs and biological substances; X58.XXXA Exposure to other specified factors, initial encounter
CPT/HCPCS: 36415; 80053; 83605; 85025; 81001; 72100; 74177; 99284; 96374; J2360; Q9967